=== PATIENT | male | born 1995 | race Caucasian/White ===

== ENCOUNTER → 2017-05-23 | Outpatient (CLI) | payer BC ==
[~2017-05-23] MED LIST: CALC625T13 PO; CHOL1000 PO; LRT5 PO; MISCCAP80; MULT-513 PO; ONDA4TAB10 SL; PRD10 PO; PRED20TA PO
--- NOTE | 2017-05-23 08:33 | DIAGNOSTIC IMAGING REPORT ---
ABDOMEN LIMITED (US) CLINICAL HISTORY: 22 years-old Male presenting with HEARTBURN. TECHNIQUE: Real-time grayscale and limited color Doppler ultrasound imaging of the abdomen limited to the right upper quadrant was performed. COMPARISON: None. FINDINGS: Pancreas: Visualized portions of the pancreatic head and body normal. Liver: Normal echogenicity and echotexture. No sonographic evidence of hepatic mass. Main portal vein patent with normal directional flow. Biliary: No intrahepatic biliary ductal dilatation. Common bile duct measures up to 4 mm in diameter. Gallbladder: No evidence of gallstones, gallbladder wall thickening, gallbladder distention, or pericholecystic fluid or inflammatory change. Few tiny punctate hyperechogenic foci associated with the gallbladder wall may represent tiny cholesterol polyps. Right kidney: Apparent lobular cystic lesion in the parapelvic region measuring 2.5 x 2.3 x 2.1 cm. No convincing evidence of soft tissue nodularity or thick septations. Peripheral hyperechogenic focus may represent mural calcification. Additional cysts noted in the left kidney. No hydronephrosis. Ascites: None. IMPRESSION: 1. No sonographic evidence of acute intra-abdominal pathology. No gallstones. 2. Bilateral renal cysts. Electronically signed by: Adan Le M.D. 05/23/2017 8:32 AM Dictated Date/Time: 05/23/2017 8:28 AM
== END | disposition home or self-care (01) ==
LOC: C.ULTR 07:40
PROVIDERS: ATTEND Family Medicine
DX: R10.11 Right upper quadrant pain (principal); R12 Heartburn

== ENCOUNTER 2017-06-16 16:52 | Emergency (ER) | payer BC ==
[~2017-06-16] VITALS: Ht 182.9 cm; Wt 87.0 kg
[~2017-06-16 16:52] MED LIST changes: -CALC625T13 PO; -CHOL1000 PO; -MISCCAP80; -MULT-513 PO; -ONDA4TAB10 SL; -PRD10 PO; -PRED20TA PO
[2017-06-16 17:12] VITALS: TEMP 37.5; Ht 182.9 cm; Wt 87.0 kg
[2017-06-16] MEDS ORDERED: ONDANSETRON INJ 2 MG/ML 2 ML VIAL IV STA (18:42)
[2017-06-16] MEDS ORDERED: SODIUM CHLORIDE 0.9% 1000ML 1,000 ML IV STA (18:42)
[2017-06-16] MEDS ORDERED: OPTIRAY 320 IV PRN (18:45)
[2017-06-16] MEDS ORDERED: CHOL1000 PO (19:11)
[2017-06-16] MEDS ORDERED: MISCCAP80 (19:11)
[2017-06-16] MEDS ORDERED: MULT-513 PO (19:11)
[2017-06-16] MEDS ORDERED: CALC625T13 PO (19:11)
[2017-06-16 19:30] LABS: BASO % 0.1 %; BASO ABS # 0.01 K/uL (0-0.2); COMPLETE YES; HEMATOCRIT 50.8 % (42-52); IG% 0.1 %; LYMPH % 10.6 %; LYMPH ABS # 0.82 K/uL (1.2-3.4); MEAN CORPUSCULAR HEMOGLOBIN 29.8 pg (25-34); MEAN CORPUSCULAR HGB CONC 34.3 g/dl (32-36); MEAN PLATELET VOLUME 11.6 fL (7.4-10.4); NEUT % 84.2 %; PLATELET COUNT 244 K/uL (130-400); RED BLOOD COUNT 5.84 M/uL (4.7-6.1); WHITE BLOOD COUNT 7.75 K/uL (4.8-10.8)
[2017-06-16 19:47] LABS: BUN/CREATININE RATIO 8.2 (10-20); CALCIUM 10.7 mg/dl (8.5-10.1); CREATININE 1.4 mg/dl (0.60-1.40); POTASSIUM 3.8 mmol/L (3.5-5.1)
[2017-06-16 21:22] LABS: URINE APPEARANCE CLOUDY (CLEAR); URINE COLOR DK YELLOW; URINE NITRITE NEG (NEG); URINE SPECIFIC GRAVITY 1.038 (1.000-1.030); UROBILINOGEN NEG (NEG)
[2017-06-16 21:33] LABS: MANUAL MICROSCOPIC REQUIRED? NO; REVIEW REQ? NO
[2017-06-16 21:34] LABS: URINE BILIRUBIN NEG (NEG)
--- NOTE | 2017-06-16 21:53 | DIAGNOSTIC IMAGING REPORT ---
CT SCAN OF THE ABDOMEN AND PELVIS WITH IV CONTRAST CLINICAL HISTORY: Generalized abdominal pain. Weight loss. COMPARISON STUDY: Abdominal ultrasound dated 05/23/2017. TECHNIQUE: Following the IV administration of 93 cc of Optiray 320, CT scan of the abdomen and pelvis is performed from the lung bases to the proximal femora. Images are reviewed in the axial, sagittal, and coronal planes. IV contrast was administered without complication. Automated dose control exposure was utilized. A dose lowering technique was utilized adhering to the principles of ALARA. CT DOSE: 333.73 mGy.cm FINDINGS: Lung bases: The heart is normal in size and without pericardial effusion. The lung bases are clear. Liver: The contrast-enhanced liver is normal in size, contour, and attenuation. There is no intrahepatic biliary ductal dilatation. The hepatic veins and portal veins are patent. Gallbladder: Unremarkable. Spleen: Normal in size and attenuation. Pancreas: Unremarkable. Adrenal glands: Unremarkable. Kidneys: The contrast enhanced kidneys are normal in size and without hydronephrosis. The kidneys enhance symmetrically. There are numerous (greater than 20) renal cysts and too small to characterize hypodensities which also likely represent cysts. Abdominal vasculature: The abdominal aorta is normal in course and caliber. Bowel: Ingested material is noted in the stomach. There is a long segment of wall thickening seen involving the distal small bowel involving the distal jejunum, ileum, and terminal ileum. There is also significant wall thickening identified in the cecum with mild surrounding inflammatory change. No bowel obstruction is seen. Liquid stool seen throughout the remainder of the colon. The distal colon is normal in appearance. There is no pneumatosis intestinalis or portal venous gas. The appendix is normal in appearance noting a calcified appendicolith. Peritoneum: There is trace perihepatic and perisplenic ascites. Trace free fluid is also seen in the pelvis. No intraperitoneal free air is seen. There is a small fat-containing umbilical hernia. Lymphadenopathy: Prominent mesenteric lymph nodes are quadrant measure up to 8 mm in short axis. Pelvic viscera: The bladder, prostate, and seminal vesicles are normal as visualized. Skeletal structures: No lytic or blastic lesions are seen. A bone island is incidentally noted in the right ischium. IMPRESSION: 1. There is a long segment of wall thickening involving the distal small bowel as well as the cecum. There is mild surrounding inflammatory change, and the appearance suggests a nonspecific enterocolitis. This is likely on an infectious or inflammatory basis in this age group. Specifically, Crohn's disease could have this appearance. That is clinical correlation will be required. Consider gastroenterology follow-up. 2. No bowel obstruction is seen. There is no pneumatosis intestinalis or portal venous gas. 3. Trace abdominopelvic ascites is likely on a reactive basis, as are prominent mesenteric lymph nodes. 4. The kidneys are infiltrated with numerous cysts and too small to characterize hypodensities (greater than 20). The appearance raises concern for autosomal dominant polycystic kidney disease. Correlation with clinical findings and family history will be required. 5. Additional findings as above. Electronically signed by: Clint Viveros M.D. 06/16/2017 9:52 PM Dictated Date/Time: 06/16/2017 9:43 PM
[2017-06-16] MEDS ORDERED: ONDA4TAB10 SL (22:11)
[2017-06-16] MEDS ORDERED: PRED20TA PO (22:11)
[2017-06-16] MEDS ORDERED: ONDANSETRON HOME PACK 4MG OD TAB PO ONE (22:15)
--- NOTE | 2017-06-16 22:19 | EMERGENCY ROOM VISIT NOTE ---
History Report prepared by Tamika: Marc Sim Under the Supervision of: Dr. Harley Fisher M.D. First contact with patient: 18:34 Chief Complaint: VOMITING Stated Complaint: VOMITING, STOMACH PAIN, DEHYDRATION History of Present Illness The patient is a 22 year old male who presents to the Emergency Room with complaints of worsening gastrointestinal issues that started 2 months ago. He says that he has had intermittent episodes since November, where he starts to feel a lot of pressure above his belly button as well as pain mostly on his right side. The patient states that he then starts to vomit and get really sick. He says that it takes around 7 to 8 hours for the episodes to resolve, and he usually feels better after he has episodes of diarrhea, which opens up everything for him. The patient states that his diarrhea has been loose and watery. He says that for the past 2 months, his episodes of abdominal pain started to progress into nausea and vomiting. He did not have nausea and vomiting with the abdominal pain until 2 months ago. The patient says that these episodes have been progressively worsening, and he has a colonoscopy scheduled for 3 days from now because he had blood in his stool a week ago. The patient says that earlier today he was really bloated and vomited all day. He adds that he has been feeling dehydrated today. The patient's mother notes that the patient has been seen by a doctor for his gastrointestinal issues, and had an ultrasound of his abdomen last month, which was normal. The patient had a prostate exam last week, which was normal. The patient's mother states that the patient is a sol who is outside a lot. The patient has been noted to have lost 27 pounds in the past 2 months, and has not eaten a meal for 4 days and has not had anything to drink for 24 hours. The patient says that he occasionally drinks out streams. He denies any urinary symptoms. He has no family history of Crohn's disease. The patient's grandfather did have esophageal cancer. Source of History: patient, parent (mother) Onset: 2 months ago Position: other (global - gastrointestinal issues) Symptom Intensity: episodes last 7 to 8 hours Timing: intermittent, other (episodes) Modifying Factors (Relieving): other (diarrhea) Associated Symptoms: + nausea, + vomiting, + abdominal pain, + hematochezia (one episode last week, denies currently), + diarrhea, No urinary symptoms Note: Associated symptoms: Feels dehydrated today. Review of Systems See HPI for pertinent positives & negatives. A total of 10 systems reviewed and were otherwise negative. Past Medical & Surgical Medical Problems: (1) Gastrointestinal problem Family History Cancer Social History Smoking Status: Never Smoker Marital Status: single Occupation Status: employed Current/Historical Medications Scheduled Calcium Polycarbophil (Fiber Tabs), 1 TAB PO DAILY Cholecalciferol (Vitamin D3), 1 TAB PO DAILY Multivitamins/Minerals (Mvi With Minerals), 1 TAB PO DAILY Ondasetron Odt (Zofran Odt), 4 MG SL Q6H Prednisone (Prednisone), 2 TAB PO DAILY Probiotic Product (Probiotic), 1 CAP DAILY Allergies Coded Allergies: No Known Allergies (Unverified , 07/11/06) Physical Exam Vital Signs Date Time Temp Pulse Resp B/P (MAP) Pulse Ox O2 Delivery O2 Flow Rate FiO2 06/16/17 21:00 92 18 132/76 96 Room Air 06/16/17 19:10 82 20 140/92 98 Room Air 06/16/17 17:12 37.5 104 17 125/75 97 Room Air Physical Exam Constitutional: Vital signs reviewed. Eyes: Pupils are equal round reactive to light. Conjunctiva are noninjected. ENT: Pharynx is clear without erythema or exudate. Mucous membranes are dry. Neck supple without meningeal signs. Respiratory: Clear to auscultation bilaterally. Breath sounds are equal bilaterally. Cardiovascular: Regular rate and rhythm. No rubs or gallops. GI: Soft, nondistended. Right upper quadrant and epigastric tenderness, no guarding. Bowel sounds are present. Musculoskeletal: No peripheral edema. No lower extremity tenderness. Integumentary: No cyanosis. Neurological: The patient is awake and alert. No focal deficits. Psychiatric: Normal affect. Medical Decision & Procedures ER Provider Diagnostic Interpretation: CT results as stated below per my review and radiologist interpretation. CT SCAN OF THE ABDOMEN AND PELVIS WITH IV CONTRAST CLINICAL HISTORY: Generalized abdominal pain. Weight loss. COMPARISON STUDY: Abdominal ultrasound dated 05/23/2017. TECHNIQUE: Following the IV administration of 93 cc of Optiray 320, CT scan of the abdomen and pelvis is performed from the lung bases to the proximal femora. Images are reviewed in the axial, sagittal, and coronal planes. IV contrast was administered without complication. Automated dose control exposure was utilized. A dose lowering technique was utilized adhering to the principles of ALARA. CT DOSE: 333.73 mGy.cm FINDINGS: Lung bases: The heart is normal in size and without pericardial effusion. The lung bases are clear. Liver: The contrast-enhanced liver is normal in size, contour, and attenuation. There is no intrahepatic biliary ductal dilatation. The hepatic veins and portal veins are patent. Gallbladder: Unremarkable. Spleen: Normal in size and attenuation. Pancreas: Unremarkable. Adrenal glands: Unremarkable. Kidneys: The contrast enhanced kidneys are normal in size and without hydronephrosis. The kidneys enhance symmetrically. There are numerous (greater than 20) renal cysts and too small to characterize hypodensities which also likely represent cysts. Abdominal vasculature: The abdominal aorta is normal in course and caliber. Bowel: Ingested material is noted in the stomach. There is a long segment of wall thickening seen involving the distal small bowel involving the distal jejunum, ileum, and terminal ileum. There is also significant wall thickening identified in the cecum with mild surrounding inflammatory change. No bowel obstruction is seen. Liquid stool seen throughout the remainder of the colon. The distal colon is normal in appearance. There is no pneumatosis intestinalis or portal venous gas. The appendix is normal in appearance noting a calcified appendicolith. Peritoneum: There is trace perihepatic and perisplenic ascites. Trace free fluid is also seen in the pelvis. No intraperitoneal free air is seen. There is a small fat-containing umbilical hernia. Lymphadenopathy: Prominent mesenteric lymph nodes are quadrant measure up to 8 mm in short axis. Pelvic viscera: The bladder, prostate, and seminal vesicles are normal as visualized. Skeletal structures: No lytic or blastic lesions are seen. A bone island is incidentally noted in the right ischium. IMPRESSION: 1. There is a long segment of wall thickening involving the distal small bowel as well as the cecum. There is mild surrounding inflammatory change, and the appearance suggests a nonspecific enterocolitis. This is likely on an infectious or inflammatory basis in this age group. Specifically, Crohn's disease could have this appearance. That is clinical correlation will be required. Consider gastroenterology follow-up. 2. No bowel obstruction is seen. There is no pneumatosis intestinalis or portal venous gas. 3. Trace abdominopelvic ascites is likely on a reactive basis, as are prominent mesenteric lymph nodes. 4. The kidneys are infiltrated with numerous cysts and too small to characterize hypodensities (greater than 20). The appearance raises concern for autosomal dominant polycystic kidney disease. Correlation with clinical findings and family history will be required. 5. Additional findings as above. Electronically signed by: Clint Viveros M.D. 06/16/2017 9:52 PM Dictated Date/Time: 06/16/2017 9:43 PM Laboratory Results 06/16/17 19:15 Red Blood Count 5.84, Mean Corpuscular Volume 87.0, Mean Corpuscular Hemoglobin 29.8, Mean Corpuscular Hemoglobin Concent 34.3, Mean Platelet Volume 11.6, Neutrophils (%) (Auto) 84.2, Lymphocytes (%) (Auto) 10.6, Monocytes (%) (Auto) 5.0, Eosinophils (%) (Auto) 0.0, Basophils (%) (Auto) 0.1, Neutrophils # (Auto) 6.52, Lymphocytes # (Auto) 0.82, Monocytes # (Auto) 0.39, Eosinophils # (Auto) 0.00, Basophils # (Auto) 0.01 06/16/17 19:15 Test 06/16/17 19:15 06/16/17 21:00 White Blood Count 7.75 K/uL (4.8-10.8) Red Blood Count 5.84 M/uL (4.7-6.1) Hemoglobin 17.4 g/dL (14.0-18.0) Hematocrit 50.8 % (42-52) Mean Corpuscular Volume 87.0 fL (80-100) Mean Corpuscular Hemoglobin 29.8 pg (25-34) Mean Corpuscular Hemoglobin Concent 34.3 g/dl (32-36) Platelet Count 244 K/uL (130-400) Mean Platelet Volume 11.6 fL (7.4-10.4) Neutrophils (%) (Auto) 84.2 % Lymphocytes (%) (Auto) 10.6 % Monocytes (%) (Auto) 5.0 % Eosinophils (%) (Auto) 0.0 % Basophils (%) (Auto) 0.1 % Neutrophils # (Auto) 6.52 K/uL (1.4-6.5) Lymphocytes # (Auto) 0.82 K/uL (1.2-3.4) Monocytes # (Auto) 0.39 K/uL (0.11-0.59) Eosinophils # (Auto) 0.00 K/uL (0-0.5) Basophils # (Auto) 0.01 K/uL (0-0.2) RDW Standard Deviation 41.3 fL (36.4-46.3) RDW Coefficient of Variation 13.0 % (11.5-14.5) Immature Granulocyte % (Auto) 0.1 % Immature Granulocyte # (Auto) 0.01 K/uL (0.00-0.02) Anion Gap 9.0 mmol/L (3-11) Est Creatinine Clear Calc Drug Dose 89.3 ml/min Estimated GFR () 80.9 Estimated GFR (Non- 69.8 BUN/Creatinine Ratio 8.2 (10-20) Calcium Level 10.7 mg/dl (8.5-10.1) Total Bilirubin 0.9 mg/dl (0.2-1) Direct Bilirubin 0.2 mg/dl (0-0.2) Aspartate Amino Transf (AST/SGOT) 14 U/L (15-37) Alanine Aminotransferase (ALT/SGPT) 23 U/L (12-78) Alkaline Phosphatase 52 U/L (45-117) Total Protein 8.4 gm/dl (6.4-8.2) Albumin 4.5 gm/dl (3.4-5.0) Lipase 109 U/L (73-393) Urine Color DK YELLOW Urine Appearance CLOUDY (CLEAR) Urine pH 6.0 (4.5-7.5) Urine Specific [place] 1.038 (1.000-1.030) Urine Protein 1+ (NEG) Urine Glucose (UA) NEG (NEG) Urine Ketones 3+ (NEG) Urine Occult Blood TRACE (NEG) Urine Nitrite NEG (NEG) Urine Bilirubin NEG (NEG) Urine Urobilinogen NEG (NEG) Urine Leukocyte Esterase TRACE (NEG) Urine WBC (Auto) 1-5 /hpf (0-5) Urine RBC (Auto) 5-10 /hpf (0-4) Urine Hyaline Casts (Auto) 10-30 /lpf (0-5) Urine Epithelial Cells (Auto) 10-20 /lpf (0-5) Urine Bacteria (Auto) NEG (NEG) Laboratory results as reviewed by me. Medications Administered Medications (Trade) Dose Ordered Sig/Jay Jay Route Start Time Stop Time Status Last Admin Dose Admin Ondansetron HCl (Zofran Inj) 4 mg NOW STAT IV 06/16/17 18:42 06/16/17 18:44 DC 06/16/17 19:29 4 MG Sodium Chloride 1,000 ml @ 999 mls/hr Q1H1M STAT IV 06/16/17 18:42 06/16/17 19:42 DC 06/16/17 19:29 999 MLS/HR ED Course 1834: The patient was evaluated in room C7. A complete history and physical exam was performed. 1841: Ordered NSS 1000 ml @ 999 mls/hr IV, Zofran Inj 4 mg IV. 2000: I reevaluated the patient and he is feeling better, drinking contrast. I discussed the test results with him. 2201: I discussed the patient with Dr. Alondra Hensley GI - he says to put the patient on Prednisone 40 mg for 2 weeks, and he will do the scope on Saturday. 2204: I reevaluated the patient and discussed the plan with him and his mother. He feels comfortable going home. The patient verbally expressed understanding and agreement of the treatment plan. The patient will be discharged. 2210: Ordered Prednisone Tab 40 mg PO. 2214: Ordered Zofran ODT 4MG Home Pack 1 homepack PO. Medical Decision This is a 22-year-old male presents with abdominal pain, weight loss, vomiting and diarrhea. Differential diagnosis includes inflammatory bowel disease, irritable bowel syndrome, gastroenteritis, amebiosis, Giardia, abdominal mass. I did perform a limited focused review of portions of the patient's old chart on the electronic medical record. The patient had an ultrasound of his abdomen on May 23 which showed no acute intraabdominal pathology. I did evaluate the patient as noted above. IV access was established. I did treat the patient with Zofran and normal saline IV. I did order and personally review the patient's urinalysis as described above. I did order and review the patient's blood work as noted in the electronic medical record. His white blood cell count is not elevated. I did order a stool culture as well as testing for ova and parasite and C. difficile. I did order a CT of the abdomen and pelvis. I did review the images myself as well as the radiology report as described above. Patient has signs concerning for Crohn's disease. There is thickening of the distal small bowel and proximal cecum. No signs of bowel obstruction. He does have some reactive lymphadenopathy and ascites. He also has multiple cysts on his kidneys. I did discuss the test results in detail with the patient and his mother. He does have an appointment to see Dr. Cantu for colonoscopy in 3 days. I did call Dr. Cantu and discussed the CT findings with him as well as the patient's symptoms. He recommended placing the patient on prednisone for 2 weeks at 40 mg daily. He also advised staying on a soft diet. The patient was happy with this plan. He will follow up on Saturday for his colonoscopy. He will return should he have any worsening symptoms or develop any new concerning symptoms. He was given prednisone 40 mg here. He was discharged with a prescription for Zofran and prednisone. Medication Reconcilliation Current Medication List: was personally reviewed by me Blood Pressure Screening Patient's blood pressure: Normal blood pressure Consults Time Called: 2199 Consulting Physician: Dr. Alondra Hensley GI Returned Call: 2201 I discussed the patient with Dr. Alondra Hensley GI - he says to put the patient on Prednisone 40 mg for 2 weeks, and he will do the scope on Saturday. Impression Primary Impression: Enterocolitis Additional Impression: Kidney cysts Scribe Attestation The scribe's documentation has been prepared under my direct and personally reviewed by me in its entirety. I confirm that the note above accurately reflects all work, treatment, procedures, and medical decision making performed by me. Departure Information Dispostion Home / Self-Care Prescriptions Prednisone (Prednisone) 20 Mg Tab 2 TAB PO DAILY for 13 Days, #26 TAB FOR 4 DAYS Prov: Harley Fisher M.D. 06/16/17 Ondasetron Odt (ZOFRAN ODT) 4 Mg Tab 4 MG SL Q6H for Nausea, #6 TAB Prov: Harley Fisher M.D. 06/16/17 Referrals Marty Gonzalez D.O. (PCP) Forms HOME CARE DOCUMENTATION FORM, IMPORTANT VISIT INFORMATION Patient Instructions My [facility] Additional Instructions You have been examined and treated today on an emergency basis only. This is not a substitute for, or an effort to provide, complete comprehensive medical care. It is impossible to recognize and treat all injuries or illnesses in a single emergency department visit. It is therefore important that you follow up closely with your physician. Call as soon as possible for an appointment. Return for worsening symptoms or if you develop fever, rectal bleeding, inability keep down liquids or any other concerning symptoms. Problem Qualifiers
[2017-06-16 22:27] VITALS: BP 123/83; PULSE 93; O2SAT 96
[2017-06-20 14:32] LABS: O&P SOURCE OTHER-STOOL
== END 2017-06-16 22:20 | disposition home or self-care (01) ==
LOC: C.EDB 16:53 → C.EDC 22:20
DX: K52.9 Noninfective gastroenteritis and colitis, unspecified (principal); N28.1 Cyst of kidney, acquired

== ENCOUNTER → 2017-06-24 | Outpatient (CLI) | payer BC ==
[~2017-06-24] MED LIST changes: +CALC625T13 PO; +CHOL1000 PO; -LRT5 PO; +MISCCAP80; +MULT-513 PO; +ONDA4TAB10 SL; +OPTIRAY 320 IV PRN; +PRD10 PO; +PRED20TA PO
--- NOTE | 2017-06-24 15:48 | DIAGNOSTIC IMAGING REPORT ---
CT ABD/PELVIS IV AND ORAL CONT (enterography study) CLINICAL HISTORY: Crohn's disease. Small bowel inflammation. COMPARISON STUDY: June 16, 2017 TECHNIQUE: Following the IV administration of 92 mL of Optiray-320, CT scan of the abdomen and pelvis was performed from the lung bases to the proximal femurs. Images are reviewed in the axial, sagittal, and coronal planes. IV contrast was administered without complication. A dose lowering technique was utilized adhering to the principles of ALARA. CT DOSE: 342.90 mGy.cm FINDINGS: Lower chest: The heart is normal in size and configuration, without pericardial effusion. The lung bases and pleural spaces are clear. Liver: There is scattered subcentimeter hypodensities likely are presenting cysts Gallbladder: Unremarkable. Spleen: Normal in size and attenuation. Pancreas: Unremarkable. Adrenal glands: Unremarkable. Kidneys: There are bilateral hypodense renal lesions ranging in size from 3 mm to 25 mm. These lesions likely represent cysts Bowel: There are no transition zones indicate bowel obstruction. There is no evidence of acute diverticulitis. The appendix appears normal. There is minimal interloop fluid within the right lower quadrant. There is a persistent focus of mild luminal narrowing and bowel wall hyperenhancement involving the ascending colon. On a statistical basis this is inflammatory. There is marked improvement in the previously identified distal ileal wall thickening with only minimal residua. Peritoneum: There is no intraperitoneal free air or abdominal ascites. Vasculature: The abdominal aorta is normal in course and caliber. Adenopathy: None. Pelvic viscera: The bladder, and pelvic viscera are unremarkable. Skeletal structures: No destructive osseous lesions are seen. IMPRESSION: 1. No evidence of bowel obstruction. No evidence of free air 2. Hepatic and renal cysts, similar to the preceding study 3. Marked improvement in the previous identified small bowel wall thickening 4. Minimal right lower quadrant interloop fluid 5. Area of bowel wall thickening and hyperenhancement involving the ascending colon. This is statistically on an inflammatory/infectious basis. Follow-up to document resolution is recommended 6. Normal appendix Electronically signed by: Juan Luz M.D. 06/24/2017 3:47 PM Dictated Date/Time: 06/24/2017 3:39 PM
== END | disposition home or self-care (01) ==
LOC: C.CTS 14:15
PROVIDERS: ATTEND Internal Medicine Gastroenterology
DX: K50.90 Crohn's disease, unspecified, without complications (principal)

== ENCOUNTER 2017-07-08 08:41 | Inpatient (IN) | payer BC ==
[~2017-07-08] VITALS: Ht 182.9 cm; Wt 83.5 kg
[~2017-07-08 08:41] MED LIST changes: -OPTIRAY 320 IV PRN; -PRD10 PO; -PRED20TA PO
[2017-07-08] MEDS ORDERED: ONDANSETRON INJ 2 MG/ML 2 ML VIAL IV STA (09:15)
[2017-07-08] MEDS ORDERED: SODIUM CHLORIDE 0.9% 1000ML 1,000 ML IV STA (09:15)
[2017-07-08] MEDS ORDERED: SODIUM CHLORIDE 0.9% 500ML 500 ML IV STA (09:15)
[2017-07-08] MEDS ORDERED: MoRPHine SULFATE 4 MG/ML 1 ML CARP\\VIAL IV STA (09:15)
[2017-07-08] MEDS ORDERED: PRD10 PO (09:24)
--- NOTE | 2017-07-08 09:51 | EMERGENCY ROOM VISIT NOTE ---
History Report prepared by Tamika: Ara Amador Under the Supervision of: Dr. Nani Kebede M.D. First contact with patient: 08:54 Chief Complaint: ABDOMINAL PAIN Stated Complaint: SEVERE ABD. PAIN, V, DEHYDRATION Nursing Triage Summary: Patient reports ongoing issues with abd pain nausea and vomiting. States he see's Dr. Cantu for intestinal issues. Today c/o mid abd pain with nausea and vomiting. History of Present Illness The patient is a 22 year old male who presents to the Emergency Room with complaints of worsening abdominal pain since yesterday morning. He is also experiencing nausea and vomiting. He had a normal bowel movement yesterday afternoon, but now he feels constipated. He rates his pain as an 8/10 in severity. The patient sees Dr. Cantu and has been tested for Crohn's Disease. He states that the results have shown inflammation of the small intestine, but no conclusive diagnosis of Crohn's. He states that he has occasional "flare-ups " that feel very similar to his symptoms today. He was just in the ED 3 weeks ago with similar symptoms. The patient has had a colonoscopy and endoscopy in the past. He denies melena and hematochezia. He is currently taking 30mg of prednisone but vomited last night shortly after taking it. Source of History: patient Onset: yesterday morning Position: abdomen Symptom Intensity: 8/10 Timing: worsening Associated Symptoms: + nausea, + vomiting, No melena, No hematochezia Review of Systems See HPI for pertinent positives & negatives. A total of 10 systems reviewed and were otherwise negative. Past Medical & Surgical Medical Problems: (1) abd pain with hx of possibel crohn disease (2) Gastrointestinal problem (3) H/O wisdom tooth extraction (4) Kidney cysts Family History Cancer Diabetes mellitus Hypertension Kidney disease Kidney stones Seizures Social History Smoking Status: Never Smoker Smokeless Tobacco Use: No Marital Status: single Housing Status: lives with family Occupation Status: employed Current/Historical Medications Scheduled Cholecalciferol (Vitamin D3), 1 TAB PO DAILY Multivitamins/Minerals (Mvi With Minerals), 1 TAB PO DAILY Prednisone (Prednisone), 30 MG PO DAILY Probiotic Product (Probiotic), 1 CAP DAILY Allergies Coded Allergies: No Known Allergies (Unverified , 07/08/17) Physical Exam Vital Signs Date Time Temp Pulse Resp B/P (MAP) Pulse Ox O2 Delivery O2 Flow Rate FiO2 07/08/17 12:18 36.6 94 18 134/83 96 Room Air 07/08/17 12:12 111 18 134/83 95 Room Air 07/08/17 10:35 112 20 121/88 99 Room Air 07/08/17 08:44 36.6 137 18 104/77 97 Room Air Physical Exam Vital signs reviewed. General: Well-appearing 22 year old male, in no significant distress. HEENT: No scleral icterus, PERRLA, neck supple. Atraumatic. Cardiovascular: Regular rate and rhythm, no extra sounds. Pulmonary: Clear to auscultation bilaterally, normal work of breathing. Abdomen: Soft, slight abdominal distention and tenderness, decreased bowel sounds. Musculoskeletal: Atraumatic, no peripheral edema. Neurologic: Patient awake alert and oriented x 3 Skin: Warm, dry, no rash Medical Decision & Procedures ER Provider Diagnostic Interpretation: Radiology results as stated below per my review and radiologist interpretation: ABDOMEN 2VIEW W/PA CHEST RTN CLINICAL HISTORY: Severe abdominal pain. Nausea and vomiting. Small bowel obstruction. COMPARISON STUDY: CT scan dated 06/24/2017 FINDINGS: The erect chest reveals no free air. There is no focal pulmonary consolidation. Erect and supine views the abdomen reveal multiple colonic air-fluid levels. The abdomen is otherwise relatively gasless. No transition zones are visualized. No abnormal calcifications are delineated. IMPRESSION: 1. There are no transition zones to indicate a high-grade bowel obstruction 2. Nonspecific bowel gas pattern with multiple colonic air-fluid levels 3. No evidence of free air Electronically signed by: Juan Luz M.D. 07/08/2017 9:57 AM Dictated Date/Time: 07/08/2017 9:56 AM Laboratory Results Test 07/08/17 09:25 07/08/17 09:30 RDW Standard Deviation 43.5 fL (36.4-46.3) RDW Coefficient of Variation 13.9 % (11.5-14.5) White Blood Count 18.80 K/uL (4.8-10.8) Red Blood Count 6.27 M/uL (4.7-6.1) Hemoglobin 19.1 g/dL (14.0-18.0) Hematocrit 54.0 % (42-52) Mean Corpuscular Volume 86.1 fL (80-100) Mean Corpuscular Hemoglobin 30.5 pg (25-34) Mean Corpuscular Hemoglobin Concent 35.4 g/dl (32-36) Platelet Count 263 K/uL (130-400) Mean Platelet Volume 12.1 fL (7.4-10.4) Neutrophils (%) (Auto) 80.4 % Lymphocytes (%) (Auto) 6.3 % Monocytes (%) (Auto) 12.8 % Eosinophils (%) (Auto) 0.0 % Basophils (%) (Auto) 0.1 % Neutrophils # (Auto) 15.11 K/uL (1.4-6.5) Lymphocytes # (Auto) 1.18 K/uL (1.2-3.4) Monocytes # (Auto) 2.41 K/uL (0.11-0.59) Eosinophils # (Auto) 0.00 K/uL (0-0.5) Basophils # (Auto) 0.02 K/uL (0-0.2) Immature Granulocyte % (Auto) 0.4 % Immature Granulocyte # (Auto) 0.08 K/uL (0.00-0.02) Total Bilirubin 1.8 mg/dl (0.2-1) Direct Bilirubin 0.3 mg/dl (0-0.2) Aspartate Amino Transf (AST/SGOT) 13 U/L (15-37) Alanine Aminotransferase (ALT/SGPT) 32 U/L (12-78) Alkaline Phosphatase 61 U/L (45-117) Total Protein 8.8 gm/dl (6.4-8.2) Albumin 4.6 gm/dl (3.4-5.0) Lipase 82 U/L (73-393) Urine Crystals CALCIUM OXALATE (NONE Urine Pathogenic Casts /lpf (0) Urine Mucus PRESENT (NONE PRSENT) Laboratory results per my review. Medications Administered Medications (Trade) Dose Ordered Sig/Jay Jay Route Start Time Stop Time Status Last Admin Dose Admin Sodium Chloride 500 ml @ 999 mls/hr Q31M STAT IV 07/08/17 09:15 07/08/17 09:45 DC 07/08/17 09:15 999 MLS/HR Sodium Chloride 1,000 ml @ 200 mls/hr Q5H STAT IV 07/08/17 09:15 07/08/17 14:04 DC 07/08/17 09:31 200 MLS/HR Morphine Sulfate (MoRPHine SULFATE INJ) 4 mg NOW STAT IV 07/08/17 09:15 07/08/17 09:17 DC 07/08/17 09:32 4 MG Ondansetron HCl (Zofran Inj) 4 mg NOW STAT IV 07/08/17 09:15 07/08/17 09:17 DC 07/08/17 09:31 4 MG ED Course 0854: Past medical records reviewed. The patient was evaluated in room B7. A complete history and physical examination was performed. 0915: Zofran 4 mg IV, Morphine sulfate 4 mg IV, NSS 1000 ml @ 200 mls/hr IV, NSS 500 ml @ 999 mls/hr IV 1135: I reassessed the patient at this time. He is feeling better and resting comfortably. I discussed the results and treatment plan with the patient and his father. I answered all pertaining questions that they had. They expressed understanding and verbalized agreement. 1158: I reviewed the patient's case with Dr. Cisneros. [facility] will evaluate the patient for further management. Medical Decision Differential diagnosis: Etiologies such as appendicitis, diverticulitis, PUD, biliary pathology, UTI, pancreatitis, obstruction, mesenteric ischemia, aortic pathology, infections, inflammatory bowel disease, renal colic, as well as others were entertained. This patient was evaluated and appeared to be in no significant distress. IV access was obtained and laboratory work was drawn. The patient was given IV Zofran and morphine for his discomfort. He had no further vomiting in the emergency department. The patient was hydrated with normal saline solution. Abdominal x-ray series reveals multiple air-fluid levels however no significant evidence of bowel obstruction. There is no free air. Patient has a leukocytosis however he is also on oral prednisone. He does have a renal insufficiency with a creatinine of 1.9. This is likely secondary to dehydration. Given the patient's symptoms and concern for underlying bowel obstruction. Patient will be evaluated by the hospitalist service for further management. Patient and dad are aware of the plan and agree. Medication Reconcilliation Current Medication List: was personally reviewed by me Blood Pressure Screening Patient's blood pressure: Normal blood pressure Consults Time Called: 1150 Consulting Physician: Dr. Cisneros Returned Call: 1158 I reviewed the patient's case with Dr. Cisneros. [facility] will evaluate the patient for further management. Impression Primary Impression: Abdominal pain Additional Impressions: Vomiting Acute renal insufficiency Scribe Attestation The scribe's documentation has been prepared under my direction and personally reviewed by me in its entirety. I confirm that the note above accurately reflects all work, treatment, procedures, and medical decision making performed by me. Departure Information Dispostion Being Evaluated By Hospitalist Referrals Miguel Cantu M.D. (PCP) Patient Instructions My [facility] Problem Qualifiers Primary Impression: Abdominal pain Abdominal location: generalized Qualified Codes: R10.84 - Generalized abdominal pain Additional Impressions: Vomiting Vomiting type: unspecified Vomiting Intractability: non-intractable Nausea presence: with nausea Qualified Codes: R11.2 - Nausea with vomiting, unspecified
[2017-07-08 09:54] LABS: BASO % 0.1 %; BASO ABS # 0.02 K/uL (0-0.2); COMPLETE YES; IG% 0.4 %; LYMPH % 6.3 %; LYMPH ABS # 1.18 K/uL (1.2-3.4); MEAN CELL VOLUME 86.1 fL (80-100); MEAN CORPUSCULAR HEMOGLOBIN 30.5 pg (25-34); MEAN CORPUSCULAR HGB CONC 35.4 g/dl (32-36); MEAN PLATELET VOLUME 12.1 fL (7.4-10.4); MONO % 12.8 %; NEUT % 80.4 %; PLATELET COUNT 263 K/uL (130-400); RED BLOOD COUNT 6.27 M/uL (4.7-6.1)
--- NOTE | 2017-07-08 09:59 | DIAGNOSTIC IMAGING REPORT ---
ABDOMEN 2VIEW W/PA CHEST RTN CLINICAL HISTORY: Severe abdominal pain. Nausea and vomiting. Small bowel obstruction. COMPARISON STUDY: CT scan dated 06/24/2017 FINDINGS: The erect chest reveals no free air. There is no focal pulmonary consolidation. Erect and supine views the abdomen reveal multiple colonic air-fluid levels. The abdomen is otherwise relatively gasless. No transition zones are visualized. No abnormal calcifications are delineated. IMPRESSION: 1. There are no transition zones to indicate a high-grade bowel obstruction 2. Nonspecific bowel gas pattern with multiple colonic air-fluid levels 3. No evidence of free air Electronically signed by: Juan Luz M.D. 07/08/2017 9:57 AM Dictated Date/Time: 07/08/2017 9:56 AM
[2017-07-08 10:07] LABS: URINE APPEARANCE CLOUDY (CLEAR); URINE NITRITE POS (NEG); URINE PH 5.5 (4.5-7.5); URINE SPECIFIC GRAVITY 1.037 (1.000-1.030); UROBILINOGEN NEG (NEG)
[2017-07-08 10:14] LABS: CREATININE 1.9 mg/dl (0.60-1.40); POTASSIUM 3.8 mmol/L (3.5-5.1)
[2017-07-08 10:16] LABS: MANUAL MICROSCOPIC REQUIRED? NO; REVIEW REQ? YES; URINE BILIRUBIN NEG (NEG); URINE COLOR AMBER
[2017-07-08 10:23] LABS: URINE MUCUS PRESENT (NONE PRSENT)
[2017-07-08 10:24] LABS: ZZUR CULT IF INDIC CLEAN CATCH YES
[2017-07-08 12:18] VITALS: BP 134/83; PULSE 94; TEMP 36.6; O2SAT 96; Ht 182.9 cm; Wt 83.5 kg
[2017-07-08] MEDS ORDERED: MAGNESIUM HYDROXIDE SUSP 30 ML UDC PO PRN (13:00)
[2017-07-08] MEDS ORDERED: POLYETHYLENE (MIRALAX) 17 GM PACK PO PRN (13:00)
[2017-07-08] MEDS ORDERED: ALUMINUM/MAGNESIUM/SIMETH (MAALOX MAX) 30 ML UDC PO PRN (13:00)
[2017-07-08] MEDS ORDERED: ONDANSETRON INJ 2 MG/ML 2 ML VIAL IV PRN (13:00)
[2017-07-08] MEDS ORDERED: ERTAPENEM 1 GM ADDVIAL IV ONE (13:00)
--- NOTE | 2017-07-08 13:19 | History and Physical ---
History & Physical Date of Service Jul 08, 2017. History & Physical abd pain with hx of possibel crohn disease, [id number]
[2017-07-08 13:30] VITALS: BP 129/91; PULSE 105; TEMP 36.9; O2SAT 96
[2017-07-08] MEDS ORDERED: ERTAPENEM IV 1,000 MG in SODIUM CHLORIDE 0.9% 50ML 50 ML IV SCH (14:00)
[2017-07-08] MEDS: METHYLPREDNISOLONE IV 20 MG in SYRINGE 0 ML IV SCH ×2 (14:36→21:08)
[2017-07-08] MEDS: NSS + 20MEQ KCL 1000ML 1,000 ML IV SCH ×2 (14:36→22:03)
[2017-07-08] MEDS: ACETAMINOPHEN 325 MG TAB PO PRN (14:41)
[2017-07-08 15:30] VITALS: O2SAT 96
--- NOTE | 2017-07-08 15:37 | HISTORY & PHYSICAL EXAMINATION ---
DATE OF ADMISSION: 07/08/2017 This is a level 3 inpatient admission, 40 minutes. CHIEF COMPLAINT: Abdominal pain, nausea and vomiting. HISTORY OF PRESENT ILLNESS: The patient is a 22-year-old white male with recently found possible Crohn disease, coming into the hospital Emergency Room with the above chief complaint. This medical information was per patient report and information in the computer. The patient was seen in this hospital Emergency Room on 06/16/2017 because of vomiting, abdominal pain and dehydration. He reported has this problem for recent 2 months. Conditions have been getting worse. In the previous Emergency Room visit, he was advised by the ED physician after they talked to the GI specialist. He had abdominal CT studies, found wall thickening in the distal small bowel. There was no obstruction. There was kidney infiltration with numerous cysts. The patient was released to home from the Emergency Room in previous visit, was on prednisone. The patient has been seen by GI specialist, had a colonoscopy done and was seen by GI physicians, had recommendation about tapering dose of oral prednisone, he currently is on 30 mg p.o. daily. The patient reported abdominal cramping, pain, nausea, vomiting have been getting worse in recent 2-3 days; and was having 10 times vomiting yesterday, today had several times in the morning. However, no any vomiting after arriving to the Emergency Room. He was found to have tachycardia, heart rate up to 137. He got IV fluid in the Emergency Room. When I saw him, he was awake, alert and orientated, confirming the above informations. Reported was having several times maroon stools. Currently, mild nauseation, no vomiting. No fever and chills. Having cramping abdominal pain comes and goes. He got 1 dose of morphine, 1 dose of Zofran and got IV fluid at 500 mL bolus. PAST MEDICAL HISTORY: Like I mentioned in the above. PAST SURGICAL HISTORY: Includes wisdom tooth removal. SOCIAL HISTORY: Denied tobacco abuse disorder or alcohol abuse disorder. Denied illicit drug abuse. FAMILY HISTORY: Has no Crohn disease. SOCIAL HISTORY: Otherwise not remarkable. CURRENT MEDICATIONS: Vitamin D 1000 units 1 tab p.o. daily, prednisone 30 mg p.o. daily. REVIEW OF SYSTEMS: Please see HPI, otherwise 14 points organ system review were negative. LABORATORY STUDIES: WBC 18, hemoglobin 19, platelet 263. Sodium, 136, BUN 27, creatinine 1.9. Random blood glucose 146. Total bilirubin 1.8. AST 13, ALT 32. Toprol protein 8.8. UA shows 1+ occult blood, nitrite positive, bacteria was 2+. Emergency Room did abdominal and chest x-ray studies; there was no indication of high grade bowel obstructions. There were multiple chronic air fluid levels. ASSESSMENT AND PLAN: A 22-year-old white male with the problems below: 1. Recurrent abdominal pain associated with nausea, vomiting, possible Crohn disease with recent colonoscopy done. 2. Leukocytosis, likely from oral prednisone. However, I would like to rule out possible sepsis because there was possible urinary tract infection in the urinary studies and there was leukocytosis and tachycardia. 3. Possible acute on chronic kidney failure. Creatinine 1.9 from 1.4 on 06/16/2017 and with evidence of possible polycystic kidney disease. PLAN: We will admit to the med/surg. IV fluid, supportive care, Zofran and morphine p.r.n. for the pain. Discussed with corporate communications intern GI specialist today, will have GI consultation. We will start Solu-Medrol 20 mg p.o. b.i.d., first dose now. We will have abdominal CT with oral contrast only. We will not do CT angio for now because patient has acute on chronic kidney failure. The patient did tell me he has an appointment with urologist for possible PKD. I feel this condition needs to have nephrology involved sooner. Therefore, we will have nephrology consultation, we will watch renal functions. Because of possible sepsis and UTI, I send a blood culture and start Invanz for now and I will go from there. GI prophylaxis will be Protonix. DVT prophylaxis will be SCD. The patient is very low risk of DVT. MTDD
[2017-07-08 15:49] VITALS: BP 135/83; PULSE 79; TEMP 36.9; O2SAT 96
--- NOTE | 2017-07-08 16:23 | DIAGNOSTIC IMAGING REPORT ---
ADDENDUM The focal area of thickening within the mid ascending colon likely represents a colitis possibly due to the patient's history of Crohn's disease. However, colonoscopy should be performed to exclude the less likely possibility of an underlying colonic mass given the associated obstruction. Electronically signed by: Mohsen Pate M.D. 07/08/2017 4:37 PM Dictated Date/Time: 07/08/2017 4:37 PM ORIGINAL REPORT ABDOMEN AND PELVIS CT WITH ORAL CONTRAST CT DOSE: 437.69 mGy.cm HISTORY: Generalized abdominal pain with hx of possible crohns disease TECHNIQUE: Multiaxial CT images of the abdomen and pelvis were performed following the use of oral contrast. A dose lowering technique was utilized adhering to the principles of ALARA. COMPARISON STUDY: Abdomen and pelvis CT 06/24/2017. FINDINGS: The lung bases are clear. No pneumoperitoneum. No pneumatosis. The unenhanced liver, spleen, adrenal glands, pancreas, and gallbladder are unremarkable. No renal stones or hydronephrosis. A few bilateral renal hypodense lesions are again noted. These are incompletely characterized on this noncontrast study. No retroperitoneal lymphadenopathy. Bladder is unremarkable. Small amount of ascites. Focal thickening at the mid descending colon with mild surrounding pericolonic inflammatory change. This is similar to the prior study. However, this now results in a focal transition point/narrowing with a distended and fluid-filled cecum. There are also multiple distended fluid-filled loops of small bowel seen throughout the abdomen. Findings are consistent with a large bowel obstruction. Mild edema surrounding the small bowel loops. The appendix is also fluid-filled and mildly distended. This measures up to 8 mm. There is minimal inflammatory change adjacent to the appendix. The cecum is distended up to 9 cm. The small bowel is distended up to 4.5 cm. The small bowel is fluid-filled. Punctate calcifications within the upper pole the left kidney which may be cortical. IMPRESSION: 1. Focal area of thickening and inflammatory change within the mid ascending colon which is similar to the prior study. However, this now results in the transition point of the large bowel obstruction. The cecum and small bowel are fluid-filled and distended as described above. 2. The appendix is also mildly distended and fluid-filled. This may be secondary to the large bowel obstruction. 3. Small amount of ascites. No pneumoperitoneum or pneumatosis identified. Electronically signed by: Mohsen Pate M.D. 07/08/2017 4:22 PM Dictated Date/Time: 07/08/2017 4:12 PM
--- NOTE | 2017-07-08 17:33 | Nephrology Consultation ---
Nephrology Consultation Date & Providers Date of Consultation: Jul 08, 2017. Primary Care Provider: Marty Gonzalez D.O. Referring Provider: Reason for Consultation Evaluation of kidney cysts History of Present Illness Mr. Armenta is a 22 year old white male who is seen at the request of Dr. Cisneros for evaluation of kidney cysts. The patient and his mother provided the majority of the medical history. Patient's EMR was also reviewed and is summarized as follows: Mr. Armenta has enjoyed good health. He has had no chronic medical illnesses. His only medication has been a probiotic and OTC vitamin D. Over the last two weeks he has developed recurrent abdominal discomfort. Contrast + abdominal CT revealed changes c/w inflammatory colitis. Patient was seen by GI, underwent colonoscopy and was started on Prednisone therapy. CT scan also incidentally found cysts within the kidneys and liver. The patient has developed YAO. Creatinine has risen from 0.7 to 1.9. Patient has hypercalcemia. Urine microscopy shows CaOx crystals. Patient denies a h/o recurrent BRYSON, angina, heart murmur, gross hematuria or diverticulosis. Past Medical/Surgical History Medical: No chronic medical illnesses Surgical: No previous surgeries Allergies Coded Allergies: No Known Allergies (Unverified , 07/08/17) Inpatient Medications Current Inpatient Medications Medications (Trade) Dose Ordered Sig/Jay Jay Route Start Time Stop Time Status Last Admin Dose Admin Acetaminophen (Tylenol Tab) 650 mg Q4H PRN PO 07/08/17 13:00 08/07/17 12:59 07/08/17 14:41 650 MG Polyethylene (Miralax Powder Packet) 17 gm DAILY PRN PO 07/08/17 13:00 08/07/17 12:59 Zolpidem Tartrate (Ambien Tab) 5 mg HSZ PRN PO 07/08/17 13:00 08/07/17 12:59 Ondansetron HCl (Zofran Inj) 4 mg Q6H PRN IV 07/08/17 13:00 08/07/17 12:59 Potassium Chloride/Sodium Chloride 1,000 ml @ 125 mls/hr Q8H IV 07/08/17 13:55 08/07/17 13:54 07/08/17 14:36 125 MLS/HR Ertapenem 1000 mg/ Sodium Chloride 60 ml @ 120 mls/hr Q24H IV 07/08/17 14:00 9/21/17 13:59 07/08/17 14:36 120 MLS/HR Lactobacillus Acidophilus (Floranex Tab) 1 tab DAILY PO 07/09/17 09:00 08/08/17 08:59 Methylprednisolone Sodium Succinate 20 mg/Syringe 0.32 ml @ 1.5 mls/min BID IV 07/08/17 14:00 08/07/17 13:59 07/08/17 14:36 1.5 MLS/MIN Family History Cancer Diabetes mellitus Hypertension Kidney disease Kidney stones Seizures Negative for ADPKD / CKD / ESRD. Also negative for Crohn's disease Social History Smoking Status: Never Smoker Smokeless Tobacco Use: No Drug Use: none Marital Status: single Occupation: employed Review of Systems Constitutional: No fever Respiratory: No cough Cardiovascular: No chest pain Abdomen: + nausea, + constipation, No pain Genitourinary - Male: No hematuria A complete review of systems was performed. Pertinent positives are noted above. All other systems are negative. Physical Exam Date Time Temp Pulse Resp B/P (MAP) Pulse Ox O2 Delivery O2 Flow Rate FiO2 07/08/17 15:49 36.9 79 18 135/83 (100) 96 Room Air 07/08/17 13:30 36.9 105 20 129/91 (104) 96 Room Air 07/08/17 13:24 105 16 126/76 97 Room Air 07/08/17 12:18 36.6 94 18 134/83 96 Room Air 07/08/17 12:12 111 18 134/83 95 Room Air 07/08/17 10:35 112 20 121/88 99 Room Air 07/08/17 08:44 36.6 137 18 104/77 97 Room Air General Appearance: no apparent distress Head: normocephalic, atraumatic Eyes: PERRL, EOMI Neck: no adenopathy, no JVD Respiratory/Chest: lungs clear, no respiratory distress Cardiovascular: regular rate, rhythm, no murmur Abdomen/GI: soft (no bowel sounds) Extremities/Musculoskelatal: no calf tenderness, no pedal edema Neurologic/Psych: alert, oriented x 3 Skin: warm/dry Laboratory Results Last 24 Hours Test 07/08/17 09:25 07/08/17 09:30 07/08/17 16:26 White Blood Count 18.80 K/uL Red Blood Count 6.27 M/uL Hemoglobin 19.1 g/dL Hematocrit 54.0 % Mean Corpuscular Volume 86.1 fL Mean Corpuscular Hemoglobin 30.5 pg Mean Corpuscular Hemoglobin Concent 35.4 g/dl Platelet Count 263 K/uL Mean Platelet Volume 12.1 fL Neutrophils (%) (Auto) 80.4 % Lymphocytes (%) (Auto) 6.3 % Monocytes (%) (Auto) 12.8 % Eosinophils (%) (Auto) 0.0 % Basophils (%) (Auto) 0.1 % Neutrophils # (Auto) 15.11 K/uL Lymphocytes # (Auto) 1.18 K/uL Monocytes # (Auto) 2.41 K/uL Eosinophils # (Auto) 0.00 K/uL Basophils # (Auto) 0.02 K/uL RDW Standard Deviation 43.5 fL RDW Coefficient of Variation 13.9 % Immature Granulocyte % (Auto) 0.4 % Immature Granulocyte # (Auto) 0.08 K/uL Sodium Level 136 mmol/L Potassium Level 3.8 mmol/L Chloride Level 99 mmol/L Carbon Dioxide Level 25 mmol/L Anion Gap 12.0 mmol/L Blood Urea Nitrogen 27 mg/dl Creatinine 1.90 mg/dl Est Creatinine Clear Calc Drug Dose 65.8 ml/min Estimated GFR () 55.9 Estimated GFR (Non- 48.3 BUN/Creatinine Ratio 14.0 Random Glucose 146 mg/dl Calcium Level 11.0 mg/dl Total Bilirubin 1.8 mg/dl Direct Bilirubin 0.3 mg/dl Aspartate Amino Transf (AST/SGOT) 13 U/L Alanine Aminotransferase (ALT/SGPT) 32 U/L Alkaline Phosphatase 61 U/L Total Protein 8.8 gm/dl Albumin 4.6 gm/dl Lipase 82 U/L Urine Color KISHA Urine Appearance CLOUDY Urine pH 5.5 Urine Specific [place] 1.037 Urine Protein 2+ Urine Glucose (UA) NEG Urine Ketones 1+ Urine Occult Blood 1+ Urine Nitrite POS Urine Bilirubin NEG Urine Urobilinogen NEG Urine Leukocyte Esterase TRACE Urine WBC (Auto) 1-5 /hpf Urine RBC (Auto) 5-10 /hpf Urine Hyaline Casts (Auto) 1-5 /lpf Urine Epithelial Cells (Auto) 10-20 /lpf Urine Bacteria (Auto) 2+ Urine Crystals CALCIUM OXALATE Urine Pathogenic Casts /lpf Urine Mucus PRESENT Impression (1) Kidney cysts (2) abd pain with hx of possibel crohn disease (3) Vomiting Recommendations YAO: -- Baseline creatinine 0.7 -- Patient is clinically volume contracted. Continue hydration w/ 0.9NS with 20 mEq KCl -- Urinalysis is positive for nitrate & leukocyte esterace. Will check urine culture -- Monitor PRP KIDNEY CYSTS: -- Abdominal CT films reviewed today. Patient has multiple cysts within the kidneys and liver. 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 Discussed in detail w/ patient & his mother this evening. Will check w/ lab re: PKD gene testing -- Will order renal US to obtain baseline measurement of kidney size and volume HYPERCALCEMIA: -- Likely related to OTC Vitamin D therapy -- Stop vitamin D, provide IV hydration. Will check vitamin D level, PTH and serum Mg GI: -- Possible inflammatory colitis. Prednisone as per GI
--- NOTE | 2017-07-08 18:08 | DIAGNOSTIC IMAGING REPORT ---
KUB HISTORY: confirm NGT placement COMPARISON: Abdomen and pelvis CT 07/08/2017. FINDINGS: Multiple distended loops of contrast-filled small bowel are again noted. The majority of the colon is decompressed. This is consistent with the patient's history of a proximal large bowel obstruction. The tip of the nasogastric tube is identified and is located within the distal esophagus. This should be advanced by approximately 15 cm. No renal calculi. No ureteral calculi. No pneumoperitoneum or pneumatosis. IMPRESSION: 1. The tip of the nasogastric tube is located within the distal esophagus. This should be advanced by approximately 15 cm. 2. Large bowel obstruction pattern is again noted. Electronically signed by: Mohsen Pate M.D. 07/08/2017 6:07 PM Dictated Date/Time: 07/08/2017 6:05 PM
[2017-07-08 21:21] LABS: URINE APPEARANCE CLEAR (CLEAR); URINE BILIRUBIN NEG (NEG); URINE COLOR DK YELLOW; URINE NITRITE NEG (NEG); URINE SPECIFIC GRAVITY 1.032 (1.000-1.030); UROBILINOGEN NEG (NEG)
[2017-07-08 21:22] LABS: MANUAL MICROSCOPIC REQUIRED? NO; REVIEW REQ? NO
[2017-07-08 21:41] LABS: URINE PROTIEN/CREAT RATIO 0.2 (0-0.2); URINE TOTAL PROTEIN 49.1 mg/dl (0-11.9)
--- NOTE | 2017-07-08 22:18 | GASTROINTESTINAL CONSULTATION ---
DATE OF CONSULTATION: 07/08/2017 REASON FOR EVALUATION: Abdominal pain and vomiting. HISTORY OF PRESENT ILLNESS: The patient is a 22-year-old who recently underwent for colonoscopy for evaluation of abdominal pain and he was found to have some inflammation in the ileum that was suggestive of ileal Crohn's disease. Biopsies showed acute, active inflammation rather than chronic inflammation and his Crohn's antibodies were negative. There were no granulomas found. There was a presumptive diagnosis of Crohn's disease made and the patient was started on prednisone at 40 mg a day. He has been on this for a couple of weeks and we just saw him in the office last week and started to taper on his steroids. Last evening, he started to have abdominal pain and was vomiting and presented to the Emergency Room, where he was found to have a white count of over 18,000 with left shift. His abdominal film showed air fluid levels, but no evidence of obstruction. He is admitted for bowel rest and IV steroids. CT scan of the abdomen has been ordered for this afternoon. PAST MEDICAL HISTORY: [place] teeth extraction. SOCIAL HISTORY: The patient denies use of alcohol and tobacco. FAMILY HISTORY: Negative for Crohn's disease. MEDICATIONS: Prednisone 30 mg a day, vitamin D 1000 units a day. PHYSICAL EXAMINATION: ABDOMEN: Soft. There is mild tenderness in the mid epigastric area. There is no mass or rebound. IMPRESSION: The patient is having abdominal pain, vomiting, and elevated white count. It is not exactly clear that he has ileal Crohn's disease. We will plan on getting a CT of the abdomen today, keeping him on bowel rest and IV fluids as well as IV Solu-Medrol 20 mg twice a day. Further evaluation will be based on his CT scan and clinical course.
[2017-07-08 23:00] VITALS: BP 125/75; PULSE 107; TEMP 36.3; O2SAT 94
--- NOTE | 2017-07-08 23:01 | DIAGNOSTIC IMAGING REPORT ---
RENAL ULTRASOUND HISTORY: possible polycystic kidney disease. Evaluate size / kidney volume COMPARISON: Abdomen and pelvis CT 07/08/2017. Abdominal ultrasound 05/23/2017. FINDINGS: Right kidney: 9.6 cm. No hydronephrosis. Normal corticomedullary differentiation and cortical thickness. A few peripelvic and cortical cysts are again noted. Dominant cyst measures approximately 2 cm. Left kidney: 11.2 cm. No hydronephrosis. Normal corticomedullary differentiation and cortical thickness. A few peripelvic and cortical cysts are again noted. Bladder: No bladder wall thickening. The bilateral ureteral jets were identified. Trace ascites. IMPRESSION: 1. No hydronephrosis. 2. No significant change in the bilateral renal cysts. 3. The kidneys are normal in size. 4. Trace ascites is again noted. Electronically signed by: Mohsen Pate M.D. 07/08/2017 11:00 PM Dictated Date/Time: 07/08/2017 10:56 PM
[2017-07-09] MEDS: NSS + 20MEQ KCL 1000ML 1,000 ML IV SCH ×2 (05:35→12:57)
[2017-07-09 07:06] VITALS: BP 126/74; PULSE 91; TEMP 37; O2SAT 95
[2017-07-09 07:06] LABS: BUN/CREATININE RATIO 21.3 (10-20); CALCIUM 9.2 mg/dl (8.5-10.1); CREATININE 0.89 mg/dl (0.60-1.40); MAGNESIUM 2.2 mg/dl (1.8-2.4); PHOSPHORUS 2.8 mg/dl (2.5-4.9)
[2017-07-09 07:38] LABS: COMPLETE YES; HEMATOCRIT 40.3 % (42-52); IG% 0.3 %; LYMPH % 7.6 %; LYMPH ABS # 0.75 K/uL (1.2-3.4); MEAN CELL VOLUME 90.4 fL (80-100); MEAN CORPUSCULAR HEMOGLOBIN 29.6 pg (25-34); MEAN CORPUSCULAR HGB CONC 32.8 g/dl (32-36); MEAN PLATELET VOLUME 11.6 fL (7.4-10.4); MONO % 8.2 %; NEUT % 83.9 %; PLATELET COUNT 184 K/uL (130-400); RED BLOOD COUNT 4.46 M/uL (4.7-6.1); WHITE BLOOD COUNT 9.86 K/uL (4.8-10.8)
[2017-07-09] MEDS ORDERED: CEROVITE ADV FORMULA TAB PO SCH (09:00)
[2017-07-09] MEDS: LACTOBACILLUS ACIDOPHILUS (FLORANEX) TAB PO SCH (09:51)
[2017-07-09] MEDS: METHYLPREDNISOLONE IV 20 MG in SYRINGE 0 ML IV SCH ×2 (09:54→20:53)
[2017-07-09] MEDS: ACETAMINOPHEN 325 MG TAB PO PRN (09:59)
--- NOTE | 2017-07-09 10:07 | Nephrology Progress Note ---
Nephrology Progress Note Date of Service Jul 09, 2017. Chief Complaint Follow up evaluation of YAO, kidney cysts Subjective Mr. Armenta was seen & examined in his hospital room this morning. He had an NG tube placed to ILWS overnight. He is uncomfortable due to the tube but notes that his abdominal distention is improved. He reports one bowel movement this morning. Review of Systems Constitutional: No fever Cardiovascular: No chest pain Respiratory: No dyspnea at rest Abdomen: No pain Extremities: No leg edema A complete review of systems was performed. Pertinent positives are noted above. All other systems are negative. Vital Signs Last 8 Hrs Date Time Temp Pulse Resp B/P (MAP) Pulse Ox O2 Delivery O2 Flow Rate FiO2 07/09/17 07:20 Room Air 07/09/17 07:06 37.0 91 18 126/74 (91) 95 Room Air Last Recorded Weight Weight (Kilograms): 83.500 Physical Exam General Appearance: no apparent distress Head: normocephalic, atraumatic Eyes: PERRL, EOMI Neck: no adenopathy Respiratory/Chest: lungs clear, no respiratory distress Cardiovascular: regular rate, rhythm, no murmur Abdomen/GI: soft (hypoactive bowel sounds. No guarding) Extremities/Musculoskelatal: no calf tenderness, no pedal edema Neurologic/Psych: alert, oriented x 3 Family History Cancer Diabetes mellitus Hypertension Kidney disease Kidney stones Seizures Negative for ADPKD / CKD / ESRD. Also negative for Crohn's disease Social History Smokeless Tobacco Use: No Drug Use: none Marital Status: single Occupation: employed Laboratory Results Past 24 Hours 07/09/17 06:05 Red Blood Count 4.46, Mean Corpuscular Volume 90.4, Mean Corpuscular Hemoglobin 29.6, Mean Corpuscular Hemoglobin Concent 32.8, Mean Platelet Volume 11.6, Neutrophils (%) (Auto) 83.9, Lymphocytes (%) (Auto) 7.6, Monocytes (%) (Auto) 8.2, Eosinophils (%) (Auto) 0.0, Basophils (%) (Auto) 0.0, Neutrophils # (Auto) 8.27, Lymphocytes # (Auto) 0.75, Monocytes # (Auto) 0.81, Eosinophils # (Auto) 0.00, Basophils # (Auto) 0.00 07/09/17 06:05 Test 07/08/17 17:17 07/08/17 21:00 07/09/17 00:09 07/09/17 06:05 25-Hydroxy Vitamin D Total 20.1 ng/ml (30-100) Parathyroid Hormone (Intact) 51.1 pg/mL (11.1-79.5) Urine Color DK YELLOW Urine Appearance CLEAR (CLEAR) Urine pH 7.0 (4.5-7.5) Urine Specific [place] 1.032 (1.000-1.030) Urine Protein 1+ (NEG) Urine Glucose (UA) NEG (NEG) Urine Ketones 1+ (NEG) Urine Occult Blood NEG (NEG) Urine Nitrite NEG (NEG) Urine Bilirubin NEG (NEG) Urine Urobilinogen NEG (NEG) Urine Leukocyte Esterase NEG (NEG) Urine WBC (Auto) 1-5 /hpf (0-5) Urine RBC (Auto) 0-4 /hpf (0-4) Urine Hyaline Casts (Auto) 1-5 /lpf (0-5) Urine Epithelial Cells (Auto) 10-20 /lpf (0-5) Urine Bacteria (Auto) NEG (NEG) Urine Random Creatinine 270.0 mg/dl Urine Random Total Protein 49.1 mg/dl (0-11.9) Urine Protein/Creatinine Ratio 0.2 (0-0.2) Stool Occult Blood POSITIVE (NEGATIVE) White Blood Count 9.86 K/uL (4.8-10.8) Red Blood Count 4.46 M/uL (4.7-6.1) Hemoglobin 13.2 g/dL (14.0-18.0) Hematocrit 40.3 % (42-52) Mean Corpuscular Volume 90.4 fL (80-100) Mean Corpuscular Hemoglobin 29.6 pg (25-34) Mean Corpuscular Hemoglobin Concent 32.8 g/dl (32-36) Platelet Count 184 K/uL (130-400) Mean Platelet Volume 11.6 fL (7.4-10.4) Neutrophils (%) (Auto) 83.9 % Lymphocytes (%) (Auto) 7.6 % Monocytes (%) (Auto) 8.2 % Eosinophils (%) (Auto) 0.0 % Basophils (%) (Auto) 0.0 % Neutrophils # (Auto) 8.27 K/uL (1.4-6.5) Lymphocytes # (Auto) 0.75 K/uL (1.2-3.4) Monocytes # (Auto) 0.81 K/uL (0.11-0.59) Eosinophils # (Auto) 0.00 K/uL (0-0.5) Basophils # (Auto) 0.00 K/uL (0-0.2) RDW Standard Deviation 47.3 fL (36.4-46.3) RDW Coefficient of Variation 14.3 % (11.5-14.5) Immature Granulocyte % (Auto) 0.3 % Immature Granulocyte # (Auto) 0.03 K/uL (0.00-0.02) Anion Gap 6.0 mmol/L (3-11) Est Creatinine Clear Calc Drug Dose 140.5 ml/min Estimated GFR () 138.7 Estimated GFR (Non- 119.7 BUN/Creatinine Ratio 21.3 (10-20) Calcium Level 9.2 mg/dl (8.5-10.1) Phosphorus Level 2.8 mg/dl (2.5-4.9) Magnesium Level 2.2 mg/dl (1.8-2.4) Date/Time Source Procedure Growth Status 07/09/17 00:09 Stool WBC Smear - Final Complete 07/09/17 00:09 Stool C.difficile Toxin B Gene (PCR) - Final No C. difficile toxin B gene detected Complete Allergies Coded Allergies: No Known Allergies (Unverified , 07/08/17) Medications Current Inpatient Medications Medications (Trade) Dose Ordered Sig/Jay Jay Route Start Time Stop Time Status Last Admin Dose Admin Acetaminophen (Tylenol Tab) 650 mg Q4H PRN PO 07/08/17 13:00 08/07/17 12:59 07/08/17 14:41 650 MG Polyethylene (Miralax Powder Packet) 17 gm DAILY PRN PO 07/08/17 13:00 08/07/17 12:59 Zolpidem Tartrate (Ambien Tab) 5 mg HSZ PRN PO 07/08/17 13:00 08/07/17 12:59 Ondansetron HCl (Zofran Inj) 4 mg Q6H PRN IV 07/08/17 13:00 08/07/17 12:59 07/08/17 20:03 4 MG Potassium Chloride/Sodium Chloride 1,000 ml @ 125 mls/hr Q8H IV 07/08/17 13:55 08/07/17 13:54 07/09/17 05:35 125 MLS/HR Ertapenem 1000 mg/ Sodium Chloride 60 ml @ 120 mls/hr Q24H IV 07/08/17 14:00 07/18/17 13:59 07/08/17 14:36 120 MLS/HR Lactobacillus Acidophilus (Floranex Tab) 1 tab DAILY PO 07/09/17 09:00 08/08/17 08:59 Methylprednisolone Sodium Succinate 20 mg/Syringe 0.32 ml @ 1.5 mls/min BID IV 07/08/17 14:00 08/07/17 13:59 07/08/17 21:08 1.5 MLS/MIN Impression (1) Kidney cysts (2) Acute kidney injury (3) abd pain with hx of possibel crohn disease (4) Vomiting Recommendations YAO: -- Resolved w/ IV hydration -- Patient remains euvolemic to volume contracted. Continue hydration w/ 0.9NS with 20 mEq KCl. Will reduce rate to 75 cc/hr -- Monitor PRP KIDNEY CYSTS: -- Renal US films and report reviewed this am: R 10 cm, L 11 cm. Cysts seen within each kidney -- Provided patient with phone number to [employer] . He can call to determine whether genetic testing for PKD is covered by his insurance HYPERCALCEMIA: -- Resolved. This was likely related to OTC Vitamin D therapy. Vitamin D level was mildly low. PTH was within normal limits -- Continue to hold OTC Vitamin D. Monitor serum calcium and albumin GI: -- GI consultation reviewed this am. Patient has inflammation of the ileum. He likely has ileal Crohn's. Continue Prednisone as per GI ID: -- Urine culture is pending -- Stool WBC's are negative -- Clostridium difficile toxin assay was negative -- Stool Shiga toxin is pending
--- NOTE | 2017-07-09 11:36 | Progress Note ---
Subjective Date of Service: Jul 09, 2017. Subjective Pt evaluation today including: conversation w/ patient, physical exam, chart review, lab review, review of studies 22 yo male who is in his first day of hospitalization. Patient was admitted yesterday for bowel obstruction and possible urinary tract infection. Patient was had a colonoscopy prior to this hospitalization in which there is a question that patient had crohns. Patient was admitted for abdominal pain, nausea, vomiting. Patient was placed in a NSG tube. Patient had about 2.5 liters removed over the course of the day. Patient now is reporting significant improvement. Only complains of sore throat, and epigastric soreness. No longer having N/V, NOR SEVERE ABDOMINAL PAIN. Problem List Medical Problems: (1) Abdominal pain Status: Acute (2) Acute renal insufficiency Status: Acute (3) Enterocolitis Status: Acute (4) Kidney cysts Status: Acute (5) Vomiting Status: Acute Review of Systems Constitutional: No fever, No chills, No sweats Eyes: No worsening of vision, No eye pain, No discharge ENT: + sore throat, No unusual epistaxis, No nasal symptoms, No tinnitus Respiratory: No cough, No sputum Cardiac: No chest pain, No orthopnea Abdomen: + pain (mild epigastric pain), No nausea, No vomiting, No diarrhea Musculoskeletal: No joint pain Male : No dysuria Neurologic: No memory loss, No paralysis Psychiatric: No depression symptoms, No anhedonism Heme: No abnormal bleeding/bruising Objective Vital Signs Date Time Temp Pulse Resp B/P (MAP) Pulse Ox O2 Delivery O2 Flow Rate FiO2 07/09/17 07:20 Room Air 07/09/17 07:06 37.0 91 18 126/74 (91) 95 Room Air 07/08/17 23:41 Room Air 07/08/17 23:00 36.3 107 16 125/75 (92) 94 Room Air 07/08/17 15:49 36.9 79 18 135/83 (100) 96 Room Air 07/08/17 15:30 96 Room Air 07/08/17 13:30 36.9 105 20 129/91 (104) 96 Room Air 07/08/17 13:24 105 16 126/76 97 Room Air 07/08/17 12:18 36.6 94 18 134/83 96 Room Air 07/08/17 12:12 111 18 134/83 95 Room Air Physical Exam General Appearance: WD/WN, no apparent distress Eyes: normal inspection Respiratory/Chest: chest non-tender, lungs clear, normal breath sounds Cardiovascular: regular rate, rhythm, no edema, no gallop Abdomen: normal bowel sounds, non tender, soft Extremities: normal range of motion, non-tender Skin: normal color, no rash Laboratory Results Last 24 Hours Test 07/08/17 17:17 07/08/17 21:00 07/09/17 00:09 07/09/17 06:05 25-Hydroxy Vitamin D Total 20.1 ng/ml Parathyroid Hormone (Intact) 51.1 pg/mL Urine Color DK YELLOW Urine Appearance CLEAR Urine pH 7.0 Urine Specific [place] 1.032 Urine Protein 1+ Urine Glucose (UA) NEG Urine Ketones 1+ Urine Occult Blood NEG Urine Nitrite NEG Urine Bilirubin NEG Urine Urobilinogen NEG Urine Leukocyte Esterase NEG Urine WBC (Auto) 1-5 /hpf Urine RBC (Auto) 0-4 /hpf Urine Hyaline Casts (Auto) 1-5 /lpf Urine Epithelial Cells (Auto) 10-20 /lpf Urine Bacteria (Auto) NEG Urine Random Creatinine 270.0 mg/dl Urine Random Total Protein 49.1 mg/dl Urine Protein/Creatinine Ratio 0.2 Stool Occult Blood POSITIVE White Blood Count 9.86 K/uL Red Blood Count 4.46 M/uL Hemoglobin 13.2 g/dL Hematocrit 40.3 % Mean Corpuscular Volume 90.4 fL Mean Corpuscular Hemoglobin 29.6 pg Mean Corpuscular Hemoglobin Concent 32.8 g/dl Platelet Count 184 K/uL Mean Platelet Volume 11.6 fL Neutrophils (%) (Auto) 83.9 % Lymphocytes (%) (Auto) 7.6 % Monocytes (%) (Auto) 8.2 % Eosinophils (%) (Auto) 0.0 % Basophils (%) (Auto) 0.0 % Neutrophils # (Auto) 8.27 K/uL Lymphocytes # (Auto) 0.75 K/uL Monocytes # (Auto) 0.81 K/uL Eosinophils # (Auto) 0.00 K/uL Basophils # (Auto) 0.00 K/uL RDW Standard Deviation 47.3 fL RDW Coefficient of Variation 14.3 % Immature Granulocyte % (Auto) 0.3 % Immature Granulocyte # (Auto) 0.03 K/uL Sodium Level 144 mmol/L Potassium Level 4.0 mmol/L Chloride Level 111 mmol/L Carbon Dioxide Level 27 mmol/L Anion Gap 6.0 mmol/L Blood Urea Nitrogen 19 mg/dl Creatinine 0.89 mg/dl Est Creatinine Clear Calc Drug Dose 140.5 ml/min Estimated GFR () 138.7 Estimated GFR (Non- 119.7 BUN/Creatinine Ratio 21.3 Random Glucose 123 mg/dl Calcium Level 9.2 mg/dl Phosphorus Level 2.8 mg/dl Magnesium Level 2.2 mg/dl Assessment and Plan Abdominal pain secondary to GI obstruction Currently has NG tube with low intermittent suction (decreased from 60 to 40). Abd. pain has significantly improved. Patient had about 2.5 liters removed via NG tube. Awaiting further management by GI team Abnormal UA First UA was abnormal with nitrites and WBC. Patient placed on ertapenem. Repeat UA was negative. Awaiting cultures. At this time, will change to rocephin. Patient though is not spetic. nor has bactermeia. Cultures are pending. Polycystic kidney disease with ARF Creatinine improved. will decrease IVF fluids today as noted by nephrology. Continued [facility] stay due to: inadequate po fluid intake (continues to require NG tube) Discharge planning: home
[2017-07-09] MEDS: CEFTRIAXONE SOD INJ 1 GM in DEXTROSE 5% ADD-VANTAGE 50ML 50 ML IV SCH (12:57)
[2017-07-09 15:00] VITALS: BP 137/82; PULSE 79; TEMP 37.1; O2SAT 94
--- NOTE | 2017-07-09 17:47 | GASTROENTEROLOGY PROGRESS NOTE ---
DATE: 07/09/2017 SUBJECTIVE: The patient is doing better today and reports that over the last couple hours NG tube suction has diminished completely. He did have some gastric output earlier today, but this has slowed. He is on IV Solu-Medrol. The patient denies any fever or chills. The patient had similar features that prompted prior hospitalization for which the patient was on prednisone 40 mg daily, and last week, his dose was reduced to 30 mg and symptoms returned. The patient's CT of the abdomen from July 08 suggest focal thickening in the mid descending colon that may reflect colitis. There appears to be a focal transition point with a distended fluid filled cecum. The small bowel shows distended loop throughout the abdomen consistent with a proximal large bowel obstruction. There is edema surrounding the small bowel loop with a cecal distention at 9 cm. The small bowel is distended to 4.5 cm. The patient has a history of polycystic kidney disease. The patient describes that he had an outpatient CT recently, although this is not apparent in the [facility] Medical record. VITAL SIGNS: Today, blood pressure currently 137/82, respirations 20, 94% on room air, heart rate 79, afebrile 37.1. MEDICATIONS: Include potassium chloride, ceftriaxone, lactobacillus, methylprednisolone 40 mg daily, Ambien and Zofran. LABORATORY STUDIES: Today show white count down to 9.8 from 18.8, hemoglobin is 13.2, although yesterday was 19.1 and suspect a hemoconcentration, platelets are 184,000. The patient's BUN and creatinine are 19 and 0.8, potassium is normal at 4.0, calcium normal at 9.2. Stools are positive for occult blood today. PHYSICAL EXAMINATION: GENERAL: The patient is awake, alert and oriented x3 with an NG tube draining dark brown material. LUNGS: Clear to auscultation. HEART: Normal S1, S2. HEENT: Sclerae are anicteric. Conjunctivae are moist. ABDOMEN: Soft, nontender, nondistended with good bowel sounds. I believe there are abdominal bruits noted in the upper to mid abdominal region of uncertain origin. EXTREMITIES: Normal range of motion for extremities. Without clubbing, cyanosis or edema. RECTAL: Deferred at this time. ALLERGIES: The patient has no known drug allergies. IMPRESSION AND PLAN: The patient with features of a bowel obstruction that seem to be proximal colon with a transition point in the mid ascending region. There is also small bowel dilation. Clinically, NG output has diminished significantly and has not had any over the past couple of hours. The source of the patient's bowel obstruction is unclear. There was evidence of active ileitis on prior colonoscopy and the colon had a normal appearance endoscopically. I made the following recommendations: At some point a repeat colonoscopy to address the proximal colon may be necessary and provide sampling. This, however, will require a bowel prep. I will look for any prior imaging studies of the small bowel such as enteroscopy or small bowel follow through to see if there are specific focal areas of concern. Although Crohn's disease is a possibility and the patient has not used chronic NSAIDs, the etiology remains unclear. There are abdominal bruits, although his age would make vascular insufficiency to the intestines less likely. We will continue to follow with you. Would monitor stool output (which the patient has made a small amount over the last day) and gastric outputs. If there is no continued output from the NG tube, this could be clamped and in several hours gastric residuals can be obtained. LEANDERD
[2017-07-09] MEDS: ZOLPIDEM TARTRATE 5 MG TAB PO PRN (22:32)
[2017-07-09 22:57] VITALS: BP 135/79; PULSE 90; TEMP 36.6; O2SAT 95
[2017-07-10] MEDS: NSS + 20MEQ KCL 1000ML 1,000 ML IV SCH ×2 (01:03→14:23)
[2017-07-10 07:18] VITALS: BP 127/71; PULSE 82; TEMP 36.9; O2SAT 96
[2017-07-10 07:37] LABS: BASO % 0.1 %; BASO ABS # 0.01 K/uL (0-0.2); COMPLETE YES; HEMATOCRIT 38.7 % (42-52); IG% 0.3 %; LYMPH % 11.8 %; LYMPH ABS # 1.34 K/uL (1.2-3.4); MEAN CELL VOLUME 91.5 fL (80-100); MEAN CORPUSCULAR HEMOGLOBIN 29.3 pg (25-34); MEAN PLATELET VOLUME 11.6 fL (7.4-10.4); MONO % 8.2 %; NEUT % 79.6 %; PLATELET COUNT 182 K/uL (130-400); RED BLOOD COUNT 4.23 M/uL (4.7-6.1); WHITE BLOOD COUNT 11.37 K/uL (4.8-10.8)
[2017-07-10 08:03] LABS: BUN/CREATININE RATIO 25.5 (10-20); CALCIUM 9.6 mg/dl (8.5-10.1); CREATININE 0.87 mg/dl (0.60-1.40); POTASSIUM 4.1 mmol/L (3.5-5.1)
[2017-07-10] MEDS: LACTOBACILLUS ACIDOPHILUS (FLORANEX) TAB PO SCH (09:33)
[2017-07-10] MEDS: METHYLPREDNISOLONE IV 20 MG in SYRINGE 0 ML IV SCH ×2 (09:40→21:20)
--- NOTE | 2017-07-10 10:11 | Nephrology Progress Note ---
Nephrology Progress Note Date of Service Jul 10, 2017. Chief Complaint Follow up evaluation of YAO, kidney cysts Subjective Mr. Armenta was seen & examined in his hospital room this morning. He continues to have drainage from his NG tube. He denies fever, flank discomfort or abdominal pain. Review of Systems Constitutional: No fever Cardiovascular: No chest pain Respiratory: No dyspnea at rest Abdomen: No pain Extremities: No leg edema A complete review of systems was performed. Pertinent positives are noted above. All other systems are negative. Vital Signs Last 8 Hrs Date Time Temp Pulse Resp B/P (MAP) Pulse Ox O2 Delivery O2 Flow Rate FiO2 07/10/17 07:20 Room Air 07/10/17 07:18 36.9 82 17 127/71 (89) 96 Room Air Last Recorded Weight Weight (Kilograms): 83.500 Physical Exam General Appearance: no apparent distress Head: normocephalic, atraumatic Eyes: PERRL, EOMI Neck: no adenopathy Respiratory/Chest: lungs clear, no respiratory distress Cardiovascular: regular rate, rhythm Abdomen/GI: soft (hypoactive bowel sounds) Extremities/Musculoskelatal: no calf tenderness, no pedal edema Neurologic/Psych: alert, oriented x 3 Family History Cancer Diabetes mellitus Hypertension Kidney disease Kidney stones Seizures Negative for ADPKD / CKD / ESRD. Also negative for Crohn's disease Social History Smokeless Tobacco Use: No Drug Use: none Marital Status: single Occupation: employed Laboratory Results Past 24 Hours 07/10/17 07:02 Red Blood Count 4.23, Mean Corpuscular Volume 91.5, Mean Corpuscular Hemoglobin 29.3, Mean Corpuscular Hemoglobin Concent 32.0, Mean Platelet Volume 11.6, Neutrophils (%) (Auto) 79.6, Lymphocytes (%) (Auto) 11.8, Monocytes (%) (Auto) 8.2, Eosinophils (%) (Auto) 0.0, Basophils (%) (Auto) 0.1, Neutrophils # (Auto) 9.06, Lymphocytes # (Auto) 1.34, Monocytes # (Auto) 0.93, Eosinophils # (Auto) 0.00, Basophils # (Auto) 0.01 07/10/17 07:02 Test 07/10/17 07:02 White Blood Count 11.37 K/uL (4.8-10.8) Red Blood Count 4.23 M/uL (4.7-6.1) Hemoglobin 12.4 g/dL (14.0-18.0) Hematocrit 38.7 % (42-52) Mean Corpuscular Volume 91.5 fL (80-100) Mean Corpuscular Hemoglobin 29.3 pg (25-34) Mean Corpuscular Hemoglobin Concent 32.0 g/dl (32-36) Platelet Count 182 K/uL (130-400) Mean Platelet Volume 11.6 fL (7.4-10.4) Neutrophils (%) (Auto) 79.6 % Lymphocytes (%) (Auto) 11.8 % Monocytes (%) (Auto) 8.2 % Eosinophils (%) (Auto) 0.0 % Basophils (%) (Auto) 0.1 % Neutrophils # (Auto) 9.06 K/uL (1.4-6.5) Lymphocytes # (Auto) 1.34 K/uL (1.2-3.4) Monocytes # (Auto) 0.93 K/uL (0.11-0.59) Eosinophils # (Auto) 0.00 K/uL (0-0.5) Basophils # (Auto) 0.01 K/uL (0-0.2) RDW Standard Deviation 47.8 fL (36.4-46.3) RDW Coefficient of Variation 14.3 % (11.5-14.5) Immature Granulocyte % (Auto) 0.3 % Immature Granulocyte # (Auto) 0.03 K/uL (0.00-0.02) Anion Gap 4.0 mmol/L (3-11) Est Creatinine Clear Calc Drug Dose 143.7 ml/min Estimated GFR () 140.0 Estimated GFR (Non- 120.8 BUN/Creatinine Ratio 25.5 (10-20) Calcium Level 9.6 mg/dl (8.5-10.1) Allergies Coded Allergies: No Known Allergies (Unverified , 07/08/17) Medications Current Inpatient Medications Medications (Trade) Dose Ordered Sig/Jay Jay Route Start Time Stop Time Status Last Admin Dose Admin Acetaminophen (Tylenol Tab) 650 mg Q4H PRN PO 07/08/17 13:00 08/07/17 12:59 07/09/17 09:59 650 MG Polyethylene (Miralax Powder Packet) 17 gm DAILY PRN PO 07/08/17 13:00 08/07/17 12:59 Zolpidem Tartrate (Ambien Tab) 5 mg HSZ PRN PO 07/08/17 13:00 08/07/17 12:59 07/09/17 22:32 5 MG Ondansetron HCl (Zofran Inj) 4 mg Q6H PRN IV 07/08/17 13:00 08/07/17 12:59 07/08/17 20:03 4 MG Lactobacillus Acidophilus (Floranex Tab) 1 tab DAILY PO 07/09/17 09:00 08/08/17 08:59 07/10/17 09:33 1 TAB Methylprednisolone Sodium Succinate 20 mg/Syringe 0.32 ml @ 1.5 mls/min BID IV 07/08/17 14:00 08/07/17 13:59 07/10/17 09:40 1.5 MLS/MIN Potassium Chloride/Sodium Chloride 1,000 ml @ 75 mls/hr [id number] IV 07/09/17 12:00 08/08/17 11:59 07/10/17 01:03 75 MLS/HR Ceftriaxone Sodium 1 gm/ Dextrose 50 ml @ 100 mls/hr Q24H IV 07/09/17 12:00 07/19/17 11:59 07/09/17 12:57 100 MLS/HR Impression (1) Kidney cysts (2) Acute kidney injury (3) abd pain with hx of possibel crohn disease (4) Vomiting Recommendations YAO: -- Resolved w/ IV hydration -- Patient remains euvolemic to volume contracted. Continue hydration w/ 0.9NS with 20 mEq KCl at 75 cc/hr -- Monitor PRP KIDNEY CYSTS: -- Renal US films and report reviewed this am: R 10 cm, L 11 cm. Cysts seen within each kidney -- Provided patient with phone number to [employer] . He can call to determine whether genetic testing for PKD is covered by his insurance HYPERCALCEMIA: -- Resolved. This was likely related to OTC Vitamin D therapy. Vitamin D level was mildly low. PTH was within normal limits -- Continue to hold OTC Vitamin D. Monitor serum calcium and albumin GI: -- GI consultation reviewed this am. Patient has inflammation of the ileum. He likely has ileal Crohn's. Continue Prednisone as per GI. NG tube remains in place ID: -- Urine culture was negative for growth -- Stool WBC's are negative -- Clostridium difficile toxin assay was negative -- Stool Shiga toxin is pending
[2017-07-10] MEDS: CEFTRIAXONE SOD INJ 1 GM in DEXTROSE 5% ADD-VANTAGE 50ML 50 ML IV SCH (13:00)
[2017-07-10 15:00] VITALS: BP 114/71; PULSE 80; TEMP 37; O2SAT 95
--- NOTE | 2017-07-10 16:41 | Progress Note ---
Subjective Date of Service: Jul 10, 2017. Subjective Pt evaluation today including: conversation w/ patient, physical exam, chart review, lab review, review of studies Pt evaluation today including: conversation w/ patient, physical exam, chart review, lab review, review of studies 22 yo male who is in his second day of hospitalization. Patient was admitted for bowel obstruction and possible urinary tract infection. Patient was had a colonoscopy prior to this hospitalization in which there is a question that patient had crohns. Patient no longer having abdominal pain, nausea, vomiting. Patient is reporting significant improvement. Problem List Medical Problems: (1) Abdominal pain Status: Acute (2) Acute renal insufficiency Status: Acute (3) Enterocolitis Status: Acute (4) Kidney cysts Status: Acute (5) Vomiting Status: Acute Review of Systems All Other Systems: Reviewed and Negative Medications Current Inpatient Medications Medications (Trade) Dose Ordered Sig/Jay Jay Route Start Time Stop Time Status Last Admin Dose Admin Acetaminophen (Tylenol Tab) 650 mg Q4H PRN PO 07/08/17 13:00 08/07/17 12:59 07/09/17 09:59 650 MG Polyethylene (Miralax Powder Packet) 17 gm DAILY PRN PO 07/08/17 13:00 08/07/17 12:59 Zolpidem Tartrate (Ambien Tab) 5 mg HSZ PRN PO 07/08/17 13:00 08/07/17 12:59 07/09/17 22:32 5 MG Ondansetron HCl (Zofran Inj) 4 mg Q6H PRN IV 07/08/17 13:00 08/07/17 12:59 07/08/17 20:03 4 MG Lactobacillus Acidophilus (Floranex Tab) 1 tab DAILY PO 07/09/17 09:00 08/08/17 08:59 07/10/17 09:33 1 TAB Methylprednisolone Sodium Succinate 20 mg/Syringe 0.32 ml @ 1.5 mls/min BID IV 07/08/17 14:00 08/07/17 13:59 07/10/17 09:40 1.5 MLS/MIN Potassium Chloride/Sodium Chloride 1,000 ml @ 75 mls/hr [id number] IV 07/09/17 12:00 08/08/17 11:59 07/10/17 14:23 75 MLS/HR Ceftriaxone Sodium 1 gm/ Dextrose 50 ml @ 100 mls/hr Q24H IV 07/09/17 12:00 07/19/17 11:59 07/10/17 13:00 100 MLS/HR Pantoprazole Sodium 40 mg/ Syringe 10 ml @ 5 mls/min DAILY@ IV 07/10/17 21:00 08/09/17 20:59 Objective Vital Signs Date Time Temp Pulse Resp B/P (MAP) Pulse Ox O2 Delivery O2 Flow Rate FiO2 07/10/17 15:00 37.0 80 20 114/71 (85) 95 Room Air 07/10/17 07:20 Room Air 07/10/17 07:18 36.9 82 17 127/71 (89) 96 Room Air 07/09/17 22:57 36.6 90 16 135/79 (97) 95 Room Air 07/09/17 20:00 Room Air Physical Exam General Appearance: WD/WN, no apparent distress Eyes: normal inspection Neck: supple, no adenopathy Respiratory/Chest: chest non-tender, lungs clear, normal breath sounds Cardiovascular: regular rate, rhythm, no edema, no gallop, no JVD Abdomen: normal bowel sounds, non tender, soft, no organomegaly Extremities: normal range of motion, normal inspection Neurologic/Psychiatric: alert, normal mood/affect Skin: normal color Laboratory Results Last 24 Hours Test 07/10/17 07:02 White Blood Count 11.37 K/uL Red Blood Count 4.23 M/uL Hemoglobin 12.4 g/dL Hematocrit 38.7 % Mean Corpuscular Volume 91.5 fL Mean Corpuscular Hemoglobin 29.3 pg Mean Corpuscular Hemoglobin Concent 32.0 g/dl Platelet Count 182 K/uL Mean Platelet Volume 11.6 fL Neutrophils (%) (Auto) 79.6 % Lymphocytes (%) (Auto) 11.8 % Monocytes (%) (Auto) 8.2 % Eosinophils (%) (Auto) 0.0 % Basophils (%) (Auto) 0.1 % Neutrophils # (Auto) 9.06 K/uL Lymphocytes # (Auto) 1.34 K/uL Monocytes # (Auto) 0.93 K/uL Eosinophils # (Auto) 0.00 K/uL Basophils # (Auto) 0.01 K/uL RDW Standard Deviation 47.8 fL RDW Coefficient of Variation 14.3 % Immature Granulocyte % (Auto) 0.3 % Immature Granulocyte # (Auto) 0.03 K/uL Sodium Level 144 mmol/L Potassium Level 4.1 mmol/L Chloride Level 110 mmol/L Carbon Dioxide Level 30 mmol/L Anion Gap 4.0 mmol/L Blood Urea Nitrogen 22 mg/dl Creatinine 0.87 mg/dl Est Creatinine Clear Calc Drug Dose 143.7 ml/min Estimated GFR () 140.0 Estimated GFR (Non- 120.8 BUN/Creatinine Ratio 25.5 Random Glucose 99 mg/dl Calcium Level 9.6 mg/dl Assessment and Plan Abdominal pain secondary to GI obstruction Currently has NG tube with low intermittent suction (40). Abd. pain has significantly improved. Patient had about 3.5 liters removed via NG tube. GI is on board. Recommends that once NG tube stops removing fluid, to clamp. Complicated urinary tract infection Currently on day 2 of rocephin. Patient is showing improvement. Patient is not in spesis. Culture pending. Polycystic kidney disease with ARF Creatinine improved. will decrease IVF fluids today as noted by nephrology. Continued [facility] stay due to: inadequate po fluid intake (continues to require NG tube) Discharge planning: home
--- NOTE | 2017-07-10 20:44 | DIAGNOSTIC IMAGING REPORT ---
ABDOMEN 2 VIEWS CLINICAL HISTORY: assess for changes in colon diameter, obstruction/ileus pain COMPARISON STUDY: No previous studies for comparison. FINDINGS: Bowel pattern is nonobstructive. No significant bowel distention. Nasogastric tube within the stomach. IMPRESSION: Nonobstructive bowel pattern with no evidence of bowel distention. Nasogastric tube within the mid stomach. The above report was generated using voice recognition software. It may contain grammatical, syntax or spelling errors. Electronically signed by: Dae Andrea M.D. 07/10/2017 8:43 PM Dictated Date/Time: 07/10/2017 8:42 PM
[2017-07-10] MEDS: PANTOprazole INJ 40 MG in SYRINGE 0 ML IV SCH (21:20)
[2017-07-10] MEDS: ZOLPIDEM TARTRATE 5 MG TAB PO PRN (21:20)
--- NOTE | 2017-07-10 22:45 | GASTROENTEROLOGY PROGRESS NOTE ---
DATE: 07/10/2017 SUBJECTIVE: The patient had done reasonably well overnight with his tube clamped. However, this morning the patient developed nausea and the patient was eventually replaced on NG tube today. The contents are a dark brown and some reports of slight red blood was made. The patient currently does not have any nausea, vomiting or abdominal pain and is passing some gas, although is only having scant if any passage of stool. LABORATORY STUDIES: Today; white count being is up at 11.3 compared with 9.8 yesterday, hemoglobin is trending downward and is 12.4 with a normal MCV of 91.5, platelets are 182,000. His serum chemistries show BUN and creatinine of 22 and 0.8. Potassium is normal at 4.1. Stools were occult positive yesterday. MEDICATIONS: Include; lactobacillus, ceftriaxone, methylprednisolone, Ambien and Zofran. REVIEW OF SYSTEMS: Otherwise noncontributory by 13-point exam. PHYSICAL EXAMINATION: VITAL SIGNS: Today show temperature afebrile at 37, blood pressure 114/71, 95% on room air, respirations 20 and heart rate 80. GENERAL: The patient is awake, alert and oriented x3, with an NG tube draining a very dark brown to black toleration through the tube. LUNGS: Clear to auscultation. HEART: Normal S1, S2. ABDOMEN: Soft, nontender and nondistended with positive bowel sounds. There is perhaps a faint bruit in the midline in the epigastrium. Sclerae are anicteric. conjunctiva moist. There is no evidence of ascites or shifting dullness. EXTREMITIES: Without clubbing, cyanosis or edema. RECTAL: Deferred. I did find and access earlier CT scans from May. Overall, these show a pattern of a potential transition zone in the proximal ascending colon, although colonoscopy did not reveal any such changes in the colon lining and only inflammation at the terminal ileal region which was active inflammation. IMPRESSION AND PLAN: At the present time, the patient still has features of at least a partial obstruction with return of NG tube output. This is dark in appearance. I will place the patient on pantoprazole 40 mg IV twice daily and will obtain obstruction series tonight to see if there is any change in the luminal diameters or features of ileus or obstruction. Goal is to maintain electrolytes including potassium, calcium, magnesium, phosphorous and these should be sampled with tomorrow's labs. At the present time, I do not believe the patient would tolerate a bowel preparation well. We will continue to follow with you. Would also continue IV steroids and follow NG tube output closely as well as stool outputs. All questions were answered for the patient. LEANDERD
[2017-07-10 23:40] VITALS: BP 122/76; PULSE 95; TEMP 36.8; O2SAT 95
[2017-07-11] MEDS: NSS + 20MEQ KCL 1000ML 1,000 ML IV SCH ×2 (04:04→16:57)
[2017-07-11 08:05] LABS: COMPLETE YES; HEMATOCRIT 39.7 % (42-52); IG% 0.2 %; LYMPH % 13.6 %; LYMPH ABS # 1.39 K/uL (1.2-3.4); MEAN CELL VOLUME 91.7 fL (80-100); MEAN CORPUSCULAR HEMOGLOBIN 29.3 pg (25-34); MEAN PLATELET VOLUME 11.4 fL (7.4-10.4); MONO % 8.2 %; PLATELET COUNT 193 K/uL (130-400); RED BLOOD COUNT 4.33 M/uL (4.7-6.1)
[2017-07-11 08:13] VITALS: BP 130/82; PULSE 60; TEMP 36.6; O2SAT 95
[2017-07-11 08:30] LABS: BUN/CREATININE RATIO 30.4 (10-20); CALCIUM 9.6 mg/dl (8.5-10.1); CREATININE 0.84 mg/dl (0.60-1.40); POTASSIUM 4.2 mmol/L (3.5-5.1)
[2017-07-11 08:46] LABS: MAGNESIUM 2.2 mg/dl (1.8-2.4); PHOSPHORUS 3.8 mg/dl (2.5-4.9)
[2017-07-11] MEDS: METHYLPREDNISOLONE IV 20 MG in SYRINGE 0 ML IV SCH ×2 (09:45→21:01)
[2017-07-11] MEDS: PANTOprazole INJ 40 MG in SYRINGE 0 ML IV SCH ×2 (09:45→21:00)
[2017-07-11] MEDS: LACTOBACILLUS ACIDOPHILUS (FLORANEX) TAB PO SCH (09:45)
--- NOTE | 2017-07-11 10:30 | Nephrology Progress Note ---
Nephrology Progress Note Date of Service Jul 11, 2017. Chief Complaint Follow up evaluation of YAO, kidney cysts Subjective Mr. Armenta was seen & examined in his hospital room this morning. NG tube was clamped briefly yesterday but he again required ILWS overnight. He currently denies fever or abdominal pain. Review of Systems Constitutional: No fever Cardiovascular: No chest pain Respiratory: No dyspnea at rest Abdomen: No pain Extremities: No leg edema A complete review of systems was performed. Pertinent positives are noted above. All other systems are negative. Vital Signs Last 8 Hrs Date Time Temp Pulse Resp B/P (MAP) Pulse Ox O2 Delivery O2 Flow Rate FiO2 07/11/17 08:13 36.6 60 16 130/82 (98) 95 Room Air Last Recorded Weight Weight (Kilograms): 83.500 Physical Exam General Appearance: no apparent distress Head: normocephalic, atraumatic Eyes: PERRL Neck: no adenopathy Respiratory/Chest: lungs clear Cardiovascular: regular rate, rhythm Abdomen/GI: non tender Extremities/Musculoskelatal: no calf tenderness, no pedal edema Neurologic/Psych: alert, oriented x 3 Family History Cancer Diabetes mellitus Hypertension Kidney disease Kidney stones Seizures Negative for ADPKD / CKD / ESRD. Also negative for Crohn's disease Social History Smokeless Tobacco Use: No Drug Use: none Marital Status: single Occupation: employed Laboratory Results Past 24 Hours 07/11/17 07:22 Red Blood Count 4.33, Mean Corpuscular Volume 91.7, Mean Corpuscular Hemoglobin 29.3, Mean Corpuscular Hemoglobin Concent 32.0, Mean Platelet Volume 11.4, Neutrophils (%) (Auto) 78.0, Lymphocytes (%) (Auto) 13.6, Monocytes (%) (Auto) 8.2, Eosinophils (%) (Auto) 0.0, Basophils (%) (Auto) 0.0, Neutrophils # (Auto) 7.95, Lymphocytes # (Auto) 1.39, Monocytes # (Auto) 0.84, Eosinophils # (Auto) 0.00, Basophils # (Auto) 0.00 07/11/17 07:22 Test 07/11/17 07:22 White Blood Count 10.20 K/uL (4.8-10.8) Red Blood Count 4.33 M/uL (4.7-6.1) Hemoglobin 12.7 g/dL (14.0-18.0) Hematocrit 39.7 % (42-52) Mean Corpuscular Volume 91.7 fL (80-100) Mean Corpuscular Hemoglobin 29.3 pg (25-34) Mean Corpuscular Hemoglobin Concent 32.0 g/dl (32-36) Platelet Count 193 K/uL (130-400) Mean Platelet Volume 11.4 fL (7.4-10.4) Neutrophils (%) (Auto) 78.0 % Lymphocytes (%) (Auto) 13.6 % Monocytes (%) (Auto) 8.2 % Eosinophils (%) (Auto) 0.0 % Basophils (%) (Auto) 0.0 % Neutrophils # (Auto) 7.95 K/uL (1.4-6.5) Lymphocytes # (Auto) 1.39 K/uL (1.2-3.4) Monocytes # (Auto) 0.84 K/uL (0.11-0.59) Eosinophils # (Auto) 0.00 K/uL (0-0.5) Basophils # (Auto) 0.00 K/uL (0-0.2) RDW Standard Deviation 46.5 fL (36.4-46.3) RDW Coefficient of Variation 13.8 % (11.5-14.5) Immature Granulocyte % (Auto) 0.2 % Immature Granulocyte # (Auto) 0.02 K/uL (0.00-0.02) Anion Gap 7.0 mmol/L (3-11) Est Creatinine Clear Calc Drug Dose 148.9 ml/min Estimated GFR () 142.0 Estimated GFR (Non- 122.6 BUN/Creatinine Ratio 30.4 (10-20) Calcium Level 9.6 mg/dl (8.5-10.1) Phosphorus Level 3.8 mg/dl (2.5-4.9) Magnesium Level 2.2 mg/dl (1.8-2.4) Allergies Coded Allergies: No Known Allergies (Unverified , 07/08/17) Medications Current Inpatient Medications Medications (Trade) Dose Ordered Sig/Jay Jay Route Start Time Stop Time Status Last Admin Dose Admin Acetaminophen (Tylenol Tab) 650 mg Q4H PRN PO 07/08/17 13:00 08/07/17 12:59 07/09/17 09:59 650 MG Polyethylene (Miralax Powder Packet) 17 gm DAILY PRN PO 07/08/17 13:00 08/07/17 12:59 Zolpidem Tartrate (Ambien Tab) 5 mg HSZ PRN PO 07/08/17 13:00 08/07/17 12:59 07/10/17 21:20 5 MG Ondansetron HCl (Zofran Inj) 4 mg Q6H PRN IV 07/08/17 13:00 08/07/17 12:59 07/08/17 20:03 4 MG Lactobacillus Acidophilus (Floranex Tab) 1 tab DAILY PO 07/09/17 09:00 08/08/17 08:59 07/10/17 09:33 1 TAB Methylprednisolone Sodium Succinate 20 mg/Syringe 0.32 ml @ 1.5 mls/min BID IV 07/08/17 14:00 08/07/17 13:59 07/10/17 21:20 1.5 MLS/MIN Potassium Chloride/Sodium Chloride 1,000 ml @ 75 mls/hr [id number] IV 07/09/17 12:00 08/08/17 11:59 07/11/17 04:04 75 MLS/HR Ceftriaxone Sodium 1 gm/ Dextrose 50 ml @ 100 mls/hr Q24H IV 07/09/17 12:00 07/19/17 11:59 07/10/17 13:00 100 MLS/HR Pantoprazole Sodium 40 mg/ Syringe 10 ml @ 5 mls/min DAILY@09,21 IV 07/10/17 21:00 08/09/17 20:59 07/10/17 21:20 5 MLS/MIN Impression (1) Kidney cysts (2) Acute kidney injury (3) abd pain with hx of possibel crohn disease (4) Vomiting Recommendations YAO: -- Resolved w/ IV hydration -- Patient continues to have significant NG drainage (1200 cc last 24 hours) and no oral intake. Continue hydration w/ 0.9NS with 20 mEq KCl at 75 cc/hr -- Potassium, Mg and PO4 are all within acceptable limits this am. Continue to monitor PRP KIDNEY CYSTS: -- Renal US 07/08/17: R 10 cm, L 11 cm. Cysts seen within each kidney -- Provided patient with phone number to [employer] . He can call to determine whether genetic testing for PKD is covered by his insurance HYPERCALCEMIA: -- Resolved. This was likely related to OTC Vitamin D therapy. Vitamin D level was mildly low. PTH was within normal limits -- Continue to hold OTC Vitamin D. Monitor serum calcium and albumin -- Serum calcium remains within normal limits this am GI: -- GI recommendations reviewed this am. KUB x-ray 07/10 shows a nonobstructive pattern. Patient remains on IV Hydrocortisone ID: -- Urine culture was negative for growth -- Stool WBC's are negative -- Clostridium difficile toxin assay was negative -- Stool Shiga toxin was negative
[2017-07-11 11:10] VITALS: BP 122/78; TEMP 36.6; O2SAT 95
[2017-07-11] MEDS: CEFTRIAXONE SOD INJ 1 GM in DEXTROSE 5% ADD-VANTAGE 50ML 50 ML IV SCH (12:49)
[2017-07-11 15:00] VITALS: BP 142/90; PULSE 112; TEMP 36.9; O2SAT 96
[2017-07-11] MEDS ORDERED: LAVAGE SOLUTION 4000ML PO SCH (15:45)
--- NOTE | 2017-07-11 18:27 | Progress Note ---
Subjective Date of Service: Jul 11, 2017. Subjective Pt evaluation today including: conversation w/ patient, physical exam, lab review Patient reports feeling well. He contiues to have about 250 liter of dark fluid content removed from NSG, however he does state that he has had a bowel movement today. But these were dark in color like the NSG content. Problem List Medical Problems: (1) Abdominal pain Status: Acute (2) Acute renal insufficiency Status: Acute (3) Enterocolitis Status: Acute (4) Kidney cysts Status: Acute (5) Vomiting Status: Acute Review of Systems Constitutional: + fever, + chills Eyes: + worsening of vision, + eye pain Respiratory: + cough, + sputum Cardiac: + chest pain, + orthopnea Abdomen: + pain, + nausea Musculoskeletal: + joint pain Male : + dysuria, + urinary frequency Neurologic: + memory loss Psychiatric: + anhedonism Heme: + abnormal bleeding/bruising All Other Systems: Reviewed and Negative Medications Current Inpatient Medications Medications (Trade) Dose Ordered Sig/Jay Jay Route Start Time Stop Time Status Last Admin Dose Admin Acetaminophen (Tylenol Tab) 650 mg Q4H PRN PO 07/08/17 13:00 08/07/17 12:59 07/09/17 09:59 650 MG Polyethylene (Miralax Powder Packet) 17 gm DAILY PRN PO 07/08/17 13:00 08/07/17 12:59 Zolpidem Tartrate (Ambien Tab) 5 mg HSZ PRN PO 07/08/17 13:00 08/07/17 12:59 07/10/17 21:20 5 MG Ondansetron HCl (Zofran Inj) 4 mg Q6H PRN IV 07/08/17 13:00 08/07/17 12:59 07/08/17 20:03 4 MG Lactobacillus Acidophilus (Floranex Tab) 1 tab DAILY PO 07/09/17 09:00 08/08/17 08:59 07/11/17 09:45 1 TAB Methylprednisolone Sodium Succinate 20 mg/Syringe 0.32 ml @ 1.5 mls/min BID IV 07/08/17 14:00 08/07/17 13:59 07/11/17 09:45 1.5 MLS/MIN Potassium Chloride/Sodium Chloride 1,000 ml @ 75 mls/hr [id number] IV 07/09/17 12:00 08/08/17 11:59 07/11/17 16:57 75 MLS/HR Ceftriaxone Sodium 1 gm/ Dextrose 50 ml @ 100 mls/hr Q24H IV 07/09/17 12:00 07/19/17 11:59 07/11/17 12:49 100 MLS/HR Pantoprazole Sodium 40 mg/ Syringe 10 ml @ 5 mls/min DAILY@ IV 07/10/17 21:00 08/09/17 20:59 07/11/17 09:45 5 MLS/MIN Polyethylene Glycol/ Electrolytes (Golytely Soln) 1 dose 1545 PO 07/11/17 15:45 07/11/17 23:50 07/11/17 16:56 1 DOSE Objective Vital Signs Date Time Temp Pulse Resp B/P (MAP) Pulse Ox O2 Delivery O2 Flow Rate FiO2 07/11/17 15:00 36.9 112 20 142/90 (107) 96 Room Air 07/11/17 11:10 36.6 12 122/78 (93) 95 Room Air 07/11/17 08:13 36.6 60 16 130/82 (98) 95 Room Air 07/11/17 07:53 Room Air 07/10/17 23:40 36.8 95 16 122/76 (91) 95 Room Air 07/10/17 23:12 Room Air 07/10/17 20:00 Room Air Physical Exam General Appearance: WD/WN, no apparent distress Eyes: normal inspection ENT: normal ENT inspection Neck: supple, no adenopathy, thyroid normal Respiratory/Chest: lungs clear, normal breath sounds Cardiovascular: regular rate, rhythm, no edema, no gallop Abdomen: normal bowel sounds, non tender Extremities: normal range of motion, non-tender Lymphatic: no adenopathy Laboratory Results Last 24 Hours Test 07/11/17 07:22 White Blood Count 10.20 K/uL Red Blood Count 4.33 M/uL Hemoglobin 12.7 g/dL Hematocrit 39.7 % Mean Corpuscular Volume 91.7 fL Mean Corpuscular Hemoglobin 29.3 pg Mean Corpuscular Hemoglobin Concent 32.0 g/dl Platelet Count 193 K/uL Mean Platelet Volume 11.4 fL Neutrophils (%) (Auto) 78.0 % Lymphocytes (%) (Auto) 13.6 % Monocytes (%) (Auto) 8.2 % Eosinophils (%) (Auto) 0.0 % Basophils (%) (Auto) 0.0 % Neutrophils # (Auto) 7.95 K/uL Lymphocytes # (Auto) 1.39 K/uL Monocytes # (Auto) 0.84 K/uL Eosinophils # (Auto) 0.00 K/uL Basophils # (Auto) 0.00 K/uL RDW Standard Deviation 46.5 fL RDW Coefficient of Variation 13.8 % Immature Granulocyte % (Auto) 0.2 % Immature Granulocyte # (Auto) 0.02 K/uL Sodium Level 142 mmol/L Potassium Level 4.2 mmol/L Chloride Level 108 mmol/L Carbon Dioxide Level 27 mmol/L Anion Gap 7.0 mmol/L Blood Urea Nitrogen 26 mg/dl Creatinine 0.84 mg/dl Est Creatinine Clear Calc Drug Dose 148.9 ml/min Estimated GFR () 142.0 Estimated GFR (Non- 122.6 BUN/Creatinine Ratio 30.4 Random Glucose 90 mg/dl Calcium Level 9.6 mg/dl Phosphorus Level 3.8 mg/dl Magnesium Level 2.2 mg/dl Assessment and Plan Abdominal pain secondary to GI obstruction Currently has NG tube with low intermittent suction (40). Abd. pain has significantly improved. Patient had about 4 liters removed via NG tube. GI is on board. Recommends that once NG tube stops removing fluid, to clamp. Patient also had a BM which is also reassuring, however, the fluid was dark, will continue to monitor his labs. Complicated urinary tract infection Currently on day 3 of rocephin. Patient is showing improvement. Polycystic kidney disease with ARF Creatinine improved. will decrease IVF fluids today as noted by nephrology. Continued [facility] stay due to: inadequate po fluid intake (continues to require NG tube) Discharge planning: home
--- NOTE | 2017-07-11 19:31 | GASTROENTEROLOGY PROGRESS NOTE ---
DATE: 07/11/2017 SUBJECTIVE: Mr. Armenta is feeling better with several bowel movements today that are of dark material. His NG tube output has diminished, although it's contents from the last 24 hours is dark brown to nearly black with occasional red coloration. However, he has no nausea, vomiting or abdominal pain. VITAL SIGNS: Today, blood pressure 122/78, afebrile, 36.6, 95% on room air, heart rate 60. LABORATORY STUDIES: Include, white count 10.2, which is down, hemoglobin 12.7 and stable and platelets of 193,000. There were no white blood cells identified on is fecal smear from July 09. C. diff, routine cultures were negative. IMAGING DATA: His x-ray last night showed evidence of a nonobstructing bowel pattern, no evidence of bowel distention and intact nasogastric tube. REVIEW OF SYSTEMS: Otherwise noncontributory based on 13-point exam. PHYSICAL EXAMINATION: GENERAL: The patient is awake, alert and oriented x3. Has an NG tube in place. This is disconnected, although has some brown residual in the tube. HEART: Normal S1, S2. LUNGS: Clear to auscultation. ABDOMEN: Soft, flat, nontender, nondistended with good bowel sounds. EXTREMITIES: Without clubbing, cyanosis or edema. RECTAL: Deferred. IMPRESSION AND PLAN: Patient with initial features of obstruction and a question of transition point in the proximal ascending colon with evidence of active ileitis, and recent colonoscopy. There is also question of dark nasogastric output that may be at times be bloody with coffee grounds. Will plan for a bowel prep if tolerated tonight with upper endoscopy to exclude mucosal disease such as ulcers or active inflammation and a repeat colonoscopy to reassess the colon lining for any transition zone in the right colon as well as reassess the terminal ileum. Dr. Cantu will be performing this tomorrow. We will begin a bowel prep this evening. We can maintain an n.p.o. status. Continue IV PPI. MTDD
[2017-07-11 23:30] VITALS: BP 115/71; PULSE 70; TEMP 36.7; O2SAT 97
[2017-07-12] MEDS: NSS + 20MEQ KCL 1000ML 1,000 ML IV SCH ×2 (05:52→19:52)
[2017-07-12 07:02] VITALS: BP 118/70; PULSE 78; TEMP 36.5; O2SAT 98
[2017-07-12 07:32] LABS: BASO % 0.1 %; BASO ABS # 0.01 K/uL (0-0.2); COMPLETE YES; HEMATOCRIT 39.2 % (42-52); IG% 0.4 %; LYMPH % 18.2 %; LYMPH ABS # 1.52 K/uL (1.2-3.4); MEAN CELL VOLUME 89.7 fL (80-100); MEAN CORPUSCULAR HEMOGLOBIN 29.7 pg (25-34); MEAN CORPUSCULAR HGB CONC 33.2 g/dl (32-36); MEAN PLATELET VOLUME 11.3 fL (7.4-10.4); MONO % 8.3 %; PLATELET COUNT 172 K/uL (130-400); RED BLOOD COUNT 4.37 M/uL (4.7-6.1); WHITE BLOOD COUNT 8.36 K/uL (4.8-10.8)
[2017-07-12 08:05] LABS: BUN/CREATININE RATIO 30.8 (10-20); CALCIUM 9.5 mg/dl (8.5-10.1); CREATININE 0.8 mg/dl (0.60-1.40); POTASSIUM 4.1 mmol/L (3.5-5.1)
[2017-07-12] MEDS: LACTOBACILLUS ACIDOPHILUS (FLORANEX) TAB PO SCH (09:16)
[2017-07-12] MEDS: PANTOprazole INJ 40 MG in SYRINGE 0 ML IV SCH ×2 (09:16→21:05)
[2017-07-12] MEDS: METHYLPREDNISOLONE IV 20 MG in SYRINGE 0 ML IV SCH ×2 (09:16→21:05)
--- NOTE | 2017-07-12 10:03 | Nephrology Progress Note ---
Nephrology Progress Note Date of Service Jul 12, 2017. Chief Complaint Follow up evaluation of YAO, kidney cysts Subjective Mr. Armenta was seen & examined in his hospital room this morning. He is voiding without difficulty. He denies flank discomfort. Mr. Cervantes's NG tube was removed yesterday evening. He remains on IV Hydrocortisone therapy. He is scheduled for EGD and colonoscopy later today. He voices no new medical concerns. Review of Systems Constitutional: No fever Cardiovascular: No chest pain Respiratory: No dyspnea at rest Abdomen: No pain Genitourinary - Male: No dysuria, No gross hematuria Extremities: No leg edema A complete review of systems was performed. Pertinent positives are noted above. All other systems are negative. Vital Signs Last 8 Hrs Date Time Temp Pulse Resp B/P (MAP) Pulse Ox O2 Delivery O2 Flow Rate FiO2 07/12/17 07:46 Room Air 07/12/17 07:02 36.5 78 16 118/70 (86) 98 Room Air Last Recorded Weight Weight (Kilograms): 83.500 Physical Exam General Appearance: no apparent distress Head: normocephalic, atraumatic Eyes: PERRL, EOMI Neck: no adenopathy Respiratory/Chest: lungs clear Cardiovascular: regular rate, rhythm Abdomen/GI: normal bowel sounds, non tender, soft Extremities/Musculoskelatal: no calf tenderness, no pedal edema Neurologic/Psych: alert, oriented x 3 Family History Cancer Diabetes mellitus Hypertension Kidney disease Kidney stones Seizures Negative for ADPKD / CKD / ESRD. Also negative for Crohn's disease Social History Smokeless Tobacco Use: No Drug Use: none Marital Status: single Occupation: employed Laboratory Results Past 24 Hours 07/12/17 07:22 Red Blood Count 4.37, Mean Corpuscular Volume 89.7, Mean Corpuscular Hemoglobin 29.7, Mean Corpuscular Hemoglobin Concent 33.2, Mean Platelet Volume 11.3, Neutrophils (%) (Auto) 73.0, Lymphocytes (%) (Auto) 18.2, Monocytes (%) (Auto) 8.3, Eosinophils (%) (Auto) 0.0, Basophils (%) (Auto) 0.1, Neutrophils # (Auto) 6.11, Lymphocytes # (Auto) 1.52, Monocytes # (Auto) 0.69, Eosinophils # (Auto) 0.00, Basophils # (Auto) 0.01 9/15/17 07:22 Test 07/12/17 07:22 White Blood Count 8.36 K/uL (4.8-10.8) Red Blood Count 4.37 M/uL (4.7-6.1) Hemoglobin 13.0 g/dL (14.0-18.0) Hematocrit 39.2 % (42-52) Mean Corpuscular Volume 89.7 fL (80-100) Mean Corpuscular Hemoglobin 29.7 pg (25-34) Mean Corpuscular Hemoglobin Concent 33.2 g/dl (32-36) Platelet Count 172 K/uL (130-400) Mean Platelet Volume 11.3 fL (7.4-10.4) Neutrophils (%) (Auto) 73.0 % Lymphocytes (%) (Auto) 18.2 % Monocytes (%) (Auto) 8.3 % Eosinophils (%) (Auto) 0.0 % Basophils (%) (Auto) 0.1 % Neutrophils # (Auto) 6.11 K/uL (1.4-6.5) Lymphocytes # (Auto) 1.52 K/uL (1.2-3.4) Monocytes # (Auto) 0.69 K/uL (0.11-0.59) Eosinophils # (Auto) 0.00 K/uL (0-0.5) Basophils # (Auto) 0.01 K/uL (0-0.2) RDW Standard Deviation 44.2 fL (36.4-46.3) RDW Coefficient of Variation 13.4 % (11.5-14.5) Immature Granulocyte % (Auto) 0.4 % Immature Granulocyte # (Auto) 0.03 K/uL (0.00-0.02) Anion Gap 5.0 mmol/L (3-11) Est Creatinine Clear Calc Drug Dose 156.3 ml/min Estimated GFR () 144.9 Estimated GFR (Non- 125.0 BUN/Creatinine Ratio 30.8 (10-20) Calcium Level 9.5 mg/dl (8.5-10.1) Allergies Coded Allergies: No Known Allergies (Unverified , 07/08/17) Medications Current Inpatient Medications Medications (Trade) Dose Ordered Sig/Jay Jay Route Start Time Stop Time Status Last Admin Dose Admin Acetaminophen (Tylenol Tab) 650 mg Q4H PRN PO 9/11/17 13:00 08/07/17 12:59 07/09/17 09:59 650 MG Polyethylene (Miralax Powder Packet) 17 gm DAILY PRN PO 07/08/17 13:00 08/07/17 12:59 Zolpidem Tartrate (Ambien Tab) 5 mg HSZ PRN PO 07/08/17 13:00 08/07/17 12:59 07/10/17 21:20 5 MG Ondansetron HCl (Zofran Inj) 4 mg Q6H PRN IV 07/08/17 13:00 08/07/17 12:59 07/08/17 20:03 4 MG Lactobacillus Acidophilus (Floranex Tab) 1 tab DAILY PO 07/09/17 09:00 08/08/17 08:59 07/12/17 09:16 1 TAB Methylprednisolone Sodium Succinate 20 mg/Syringe 0.32 ml @ 1.5 mls/min BID IV 07/08/17 14:00 08/07/17 13:59 07/12/17 09:16 1.5 MLS/MIN Potassium Chloride/Sodium Chloride 1,000 ml @ 75 mls/hr [id number] IV 07/09/17 12:00 08/08/17 11:59 07/12/17 05:52 75 MLS/HR Ceftriaxone Sodium 1 gm/ Dextrose 50 ml @ 100 mls/hr Q24H IV 07/09/17 12:00 07/19/17 11:59 07/11/17 12:49 100 MLS/HR Pantoprazole Sodium 40 mg/ Syringe 10 ml @ 5 mls/min DAILY@ IV 07/10/17 21:00 08/09/17 20:59 07/12/17 09:16 5 MLS/MIN Impression (1) Kidney cysts (2) Acute kidney injury (3) abd pain with hx of possibel crohn disease (4) Vomiting Recommendations KIDNEY CYSTS: -- YAO resolved. Will heplock IV -- Renal US 07/08/17: R 10 cm, L 11 cm. Cysts seen within each kidney -- Provided patient with phone number to [facility] . He can call to determine whether genetic testing for PKD is covered by his insurance GI: -- Patient has Crohn's ileitis. He remains on IV Hydrocortisone -- Patient is scheduled for EGD and colonoscopy today OTHER: -- No further inpatient Nephrology evaluation indicated at this time. Will sign off. -- In anticipation of hospital discharge I have placed order in [employer] [facility] EMR to have my military source operations officer staff call patient and schedule [facility] [place] in 2 weeks. Orders have also been placed for nonfasting blood work to be completed 24 hours prior to visit.
[2017-07-12] MEDS: CEFTRIAXONE SOD INJ 1 GM in DEXTROSE 5% ADD-VANTAGE 50ML 50 ML IV SCH (11:53)
[2017-07-12] MEDS ORDERED: FENTANYL CITRATE INJ 50 MCG/1 ML 2 ML VIAL ONE (14:51)
[2017-07-12] MEDS ORDERED: PROPOFOL IV EMULSION 10 MG/ML 20 ML VIAL IV ONE ×3 (14:51→15:39)
[2017-07-12] MEDS ORDERED: LIDOCAINE HCL 2% 2 ML VIAL (20MG/ML) ONE (14:51)
--- NOTE | 2017-07-12 15:10 | Endo History and Physical ---
History & Physical Date of Service: Jul 12, 2017. Chief Complaint: bowel obstruction Referring Physician: Dr Cisneros History of Present Illness For EGD and colonoscopy Past Surgical History Hx Cardiac Surgery: No Hx Abdominal Surgery: No Hx Post-Op Nausea and Vomiting: No Hx Cancer Surgery: No Hx Thoracic Surgery: No Hx Orthopedic: No Hx Urinary Tract Surgery: No Social History Smoking Status: Never Smoker Smokeless Tobacco Use: No Hx Substance Use: No Hx Alcohol Use: No Allergies Coded Allergies: No Known Allergies (Unverified , 07/08/17) Current Medications Reported Home Medications Medications Dose Route/Sig Max Daily Dose Days Date Category Prednisone 10 Mg Tab 30 Mg PO DAILY 07/08/17 Reported Vitamin D3 (Cholecalciferol) 1,000 Unit Tab 1 Tab PO DAILY 90 06/16/17 Reported Probiotic (Probiotic Product) 1 Cap Cap 1 Cap DAILY 06/16/17 Reported Mvi With Minerals (Multivitamins/Minerals) Tab 1 Tab PO DAILY 06/16/17 Reported Vital Signs Weight (Kilograms): 83.500 Height (Feet): 6 Height (Inches): 0.00 Date Time Temp Pulse Resp B/P (MAP) Pulse Ox O2 Delivery O2 Flow Rate FiO2 07/12/17 13:58 37.1 68 18 134/74 (94) 97 Room Air 07/12/17 07:46 Room Air 07/12/17 07:02 36.5 78 16 118/70 (86) 98 Room Air 07/11/17 23:30 36.7 70 16 115/71 (86) 97 Room Air 07/11/17 19:15 Room Air Physical Exam General Appearance: WD/WN Respiratory/Chest: Respiratory effort: no dyspnea Cardiovascular: Heart Auscultation: RRR Abdomen: Inspection & Palpation: soft Assessment and Plan Bowel obstruction for EGD and colonoscopy
--- NOTE | 2017-07-12 15:39 | Discharge Instructions ---
Endoscopy Patient Instructions Date / Procedure(s) Performed Jul 12, 2017. Colonoscopy, EGD Allergy Information Coded Allergies: No Known Allergies (Unverified , 07/08/17) Discharge Date / Findings Jul 12, 2017. cardia ulcer, stricture in ascending colon Medication Instructions Restart Stopped Medication(s): resume meds Current Inpatient Medications Medications (Trade) Dose Ordered Sig/Jay Jay Route Start Time Stop Time Status Last Admin Dose Admin Acetaminophen (Tylenol Tab) 650 mg Q4H PRN PO 07/08/17 13:00 08/07/17 12:59 07/09/17 09:59 650 MG Polyethylene (Miralax Powder Packet) 17 gm DAILY PRN PO 07/08/17 13:00 08/07/17 12:59 Zolpidem Tartrate (Ambien Tab) 5 mg HSZ PRN PO 07/08/17 13:00 08/07/17 12:59 07/10/17 21:20 5 MG Ondansetron HCl (Zofran Inj) 4 mg Q6H PRN IV 07/08/17 13:00 08/07/17 12:59 07/08/17 20:03 4 MG Lactobacillus Acidophilus (Floranex Tab) 1 tab DAILY PO 07/09/17 09:00 08/08/17 08:59 07/12/17 09:16 1 TAB Methylprednisolone Sodium Succinate 20 mg/Syringe 0.32 ml @ 1.5 mls/min BID IV 07/08/17 14:00 08/07/17 13:59 07/12/17 09:16 1.5 MLS/MIN Potassium Chloride/Sodium Chloride 1,000 ml @ 75 mls/hr [id number] IV 07/09/17 12:00 08/08/17 11:59 07/12/17 05:52 75 MLS/HR Ceftriaxone Sodium 1 gm/ Dextrose 50 ml @ 100 mls/hr Q24H IV 07/09/17 12:00 07/19/17 11:59 07/12/17 11:53 100 MLS/HR Pantoprazole Sodium 40 mg/ Syringe 10 ml @ 5 mls/min DAILY@ IV 07/10/17 21:00 08/09/17 20:59 07/12/17 09:16 5 MLS/MIN Provider Instructions Activity Restrictions - No exercising or heavy lifting for 24 hours. - Do not drink alcohol the day of the procedure. - Do not drive a car or operate machinery until the day after the procedure. - Do not make any important decisions or sign important papers in 24 hours after the procedure. Following Day: - Return to full activity which may include returning to work/school. Diet Start your diet with liquids and light foods (jello, soup, juice, toast). Then eat your usual diet if not nauseated. Treatment For Common After Affects For mild abdominal pain, bloating, or excessive gas: - Rest - Eat lightly - Lie on right side Follow-Up Information Follow-up with as scheduled Anesthesia Information What You Should Know You have had a procedure that required some medicine to reduce anxiety and discomfort. This treatment is called moderate sedation. After receiving the treatment, you may be sleepy, but you will be able to breathe on your own. The effects of the treatment may last for several hours. Follow these instructions along with Activity/Diet recommendations noted above: * Do NOT do anything where dizziness or clumsiness would be dangerous. * Rest quietly at home today, then you can be up and about tomorrow. * Have a responsible person stay with you the rest of today. * You may have had an I.V. today. If so, you may take the dressing off later today. Recommendations Call your doctor if: * Trouble breathing * Continuous vomiting for more than 24 hours * Temperature above 101 degrees * Severe abdominal pain or bloating * Pain not relieved by pain medicine ordered * There is increased drainage or redness from any incision * A large amount of rectal bleeding greater than 2-3 tablespoons. (If you had a polyp/s removed or have hemorrhoids, a small amount of blood - from the rectum is to be expected.) * You have any unanswered questions or concerns. IN THE EVENT OF A SERIOUS EMERGENCY, GO TO THE NEAREST EMERGENCY ROOM Your discharge instructions were prepared by provider Miguel Cantu. Patient Instructions Signature Page Lenny Armenta Patient (or Guardian) Signature/Date: I have read and understand the instructions given to me by my caregivers. Caregiver/RN/Doctor Signature/Date: The above-named patient and/or guardian has received patient instructions on this date. + Original Patient Signature Page (only) stays with chart. Please make copy for patient.
--- NOTE | 2017-07-12 15:43 | GI REPORT ---
Procedure Date: 07/12/2017 2:29 PM Procedure: Upper GI endoscopy Indications: Epigastric abdominal pain Medicines: Fentanyl 100 micrograms IV, Propofol total dose 550 mg IV Complications: No immediate complications. Estimated Blood Loss: Estimated blood loss: none. Procedure: Pre-Anesthesia Assessment: - Prior to the procedure, a History and Physical was performed, and patient medications, allergies and sensitivities were reviewed. The patient's tolerance of previous anesthesia was reviewed. - The risks and benefits of the procedure and the sedation options and risks were discussed with the patient. All questions were answered and informed consent was obtained. After obtaining informed consent, the endoscope was passed under direct vision. Throughout the procedure, the patient's blood pressure, pulse, and oxygen saturations were monitored continuously. The scope was introduced through the mouth, and advanced to the second part of duodenum. The upper GI endoscopy was accomplished without difficulty. The patient tolerated the procedure well. Findings: The examined esophagus was normal. One non-bleeding superficial gastric ulcer with no stigmata of bleeding was found in the cardia. The lesion was 8 mm in largest dimension. The examined duodenum was normal. Impression: - Normal esophagus. - Non-bleeding gastric ulcer with no stigmata of bleeding. - Normal examined duodenum. - No specimens collected. Recommendation: - Return patient to [facility] for ongoing care. Miguel Cantu M.D. Miguel Cantu MD 07/12/2017 3:42:35 PM This report has been signed electronically. Note Initiated On: 07/12/2017 2:29 PM I attest to the content of the Intraoperative Record and orders documented therein, exceptions below
--- NOTE | 2017-07-12 15:45 | GI REPORT ---
Procedure Date: 07/12/2017 2:30 PM Procedure: Colonoscopy Indications: Generalized abdominal pain, Abnormal CT of the GI tract Medicines: Fentanyl 100 micrograms IV, Propofol total dose 550 mg IV Complications: No immediate complications. Estimated Blood Loss: Estimated blood loss was minimal. Procedure: Pre-Anesthesia Assessment: - Prior to the procedure, a History and Physical was performed, and patient medications, allergies and sensitivities were reviewed. The patient's tolerance of previous anesthesia was reviewed. - The risks and benefits of the procedure and the sedation options and risks were discussed with the patient. All questions were answered and informed consent was obtained. After I obtained informed consent, the scope was passed under direct vision. Throughout the procedure, the patient's blood pressure, pulse, and oxygen saturations were monitored continuously. The scope was introduced through the anus and advanced to the ascending colon. The colonoscopy was performed without difficulty. The patient tolerated the procedure well. The quality of the bowel preparation was good. Findings: A benign-appearing, intrinsic severe stenosis was found in the proximal ascending colon and was non-traversed. Biopsies were taken with a cold forceps for histology. Estimated blood loss was minimal. Impression: - Stricture in the proximal ascending colon. Biopsied. Recommendation: - Return patient to [facility] for ongoing care. Miguel Cantu M.D. Miguel Cantu MD 07/12/2017 3:45:31 PM This report has been signed electronically. Note Initiated On: 07/12/2017 2:30 PM I attest to the content of the Intraoperative Record and orders documented therein, exceptions below
--- NOTE | 2017-07-12 15:49 | Anesthesiology Progress Note ---
Anesthesia Post Op Note Date & Time Jul 12, 2017 at 15:49 Vital Signs Pain Intensity: 0.0 Vital Signs Past 12 Hours Date Time Temp Pulse Resp B/P (MAP) Pulse Ox O2 Delivery O2 Flow Rate FiO2 07/12/17 13:58 37.1 68 18 134/74 (94) 97 Room Air 07/12/17 07:46 Room Air 07/12/17 07:02 36.5 78 16 118/70 (86) 98 Room Air Notes Mental Status: alert / awake / arousable, participated in evaluation Pt Amnestic to Procedure: Yes Nausea / Vomiting: adequately controlled Pain: adequately controlled Airway Patency, RR, SpO2: stable & adequate BP & HR: stable & adequate Hydration State: stable & adequate Anesthetic Complications: no major complications apparent
[2017-07-12 16:28] VITALS: BP 122/87; PULSE 61; TEMP 36.7; O2SAT 97
--- NOTE | 2017-07-12 16:28 | PROGRESS NOTE ---
DATE: 07/12/2017 HISTORY OF PRESENT ILLNESS: The patient presented in the endoscopy center this afternoon for EGD and colonoscopy. His EGD showed a little bit of a nasogastric tube irritation in the cardia of the stomach, but was otherwise negative. Colonoscopy was significant for a stricturing lesion in the proximal ascending colon which was not there approximately a month ago, at least it was not evident. The lesion is significantly stenotic enough that the scope could not pass through the area. Biopsies were performed. IMPRESSION: The patient has partial obstruction of his colon and the proximal ascending area. This is probably from Crohn's disease. My concern is that this is obviously very aggressive and this is occurring despite taking steroids. I think that it is probably not going to get any better with medical therapy and I think surgery is probably indicated not only to relieve the obstruction, but also for diagnostic purposes as such I will consult general surgery to see the patient for surgical opinion.
[2017-07-12 21:55] VITALS: BP 118/76; PULSE 68; TEMP 36.8; O2SAT 95
--- NOTE | 2017-07-12 22:22 | Progress Note ---
Subjective Date of Service: Jul 12, 2017. Subjective Patient reports feeling well today. Patient has no complaints today. Problem List Medical Problems: (1) Abdominal pain Status: Acute (2) Acute renal insufficiency Status: Acute (3) Enterocolitis Status: Acute (4) Kidney cysts Status: Acute (5) Vomiting Status: Acute Review of Systems Constitutional: + see HPI All Other Systems: Reviewed and Negative Objective Vital Signs Date Time Temp Pulse Resp B/P (MAP) Pulse Ox O2 Delivery O2 Flow Rate FiO2 07/12/17 17:00 Room Air 07/12/17 16:28 36.7 61 18 122/87 (99) 97 Room Air 07/12/17 16:14 68 16 126/72 (90) 99 Room Air 07/12/17 15:59 73 16 116/75 (89) 97 Room Air 07/12/17 15:44 85 16 102/56 (71) 100 Room Air 07/12/17 13:58 37.1 68 18 134/74 (94) 97 Room Air 07/12/17 07:46 Room Air 07/12/17 07:02 36.5 78 16 118/70 (86) 98 Room Air 07/11/17 23:30 36.7 70 16 115/71 (86) 97 Room Air 07/11/17 19:15 Room Air Physical Exam General Appearance: WD/WN, no apparent distress Neck: supple, no adenopathy Respiratory/Chest: chest non-tender, lungs clear Cardiovascular: regular rate, rhythm, no edema, no gallop Abdomen: normal bowel sounds, non tender, soft Skin: normal color Laboratory Results Last 24 Hours Test 07/12/17 07:22 White Blood Count 8.36 K/uL Red Blood Count 4.37 M/uL Hemoglobin 13.0 g/dL Hematocrit 39.2 % Mean Corpuscular Volume 89.7 fL Mean Corpuscular Hemoglobin 29.7 pg Mean Corpuscular Hemoglobin Concent 33.2 g/dl Platelet Count 172 K/uL Mean Platelet Volume 11.3 fL Neutrophils (%) (Auto) 73.0 % Lymphocytes (%) (Auto) 18.2 % Monocytes (%) (Auto) 8.3 % Eosinophils (%) (Auto) 0.0 % Basophils (%) (Auto) 0.1 % Neutrophils # (Auto) 6.11 K/uL Lymphocytes # (Auto) 1.52 K/uL Monocytes # (Auto) 0.69 K/uL Eosinophils # (Auto) 0.00 K/uL Basophils # (Auto) 0.01 K/uL RDW Standard Deviation 44.2 fL RDW Coefficient of Variation 13.4 % Immature Granulocyte % (Auto) 0.4 % Immature Granulocyte # (Auto) 0.03 K/uL Sodium Level 140 mmol/L Potassium Level 4.1 mmol/L Chloride Level 107 mmol/L Carbon Dioxide Level 28 mmol/L Anion Gap 5.0 mmol/L Blood Urea Nitrogen 25 mg/dl Creatinine 0.80 mg/dl Est Creatinine Clear Calc Drug Dose 156.3 ml/min Estimated GFR () 144.9 Estimated GFR (Non- 125.0 BUN/Creatinine Ratio 30.8 Random Glucose 93 mg/dl Calcium Level 9.5 mg/dl Assessment and Plan Abdominal pain secondary to GI obstruction No longer on NG tube. Patient was told by gastro that he would need surgery given the severity of his condition. Parents of patient would like to go to [place] for a second opinion as they are not convinced that patient requires bowel resection.. patient agrees with this as well. Informed gastro zoning technician, and is aware of this. I appreciate gastro input. Patient will be transferred tomorrow. Continued [facility] stay due to: inadequate po fluid intake (continues to require NG tube) Discharge planning: home, acute transfer
[2017-07-12 22:57] VITALS: BP 120/71; PULSE 63; TEMP 36.8; O2SAT 99
[2017-07-13 07:04] VITALS: BP 116/65; PULSE 61; TEMP 36.7; O2SAT 97
[2017-07-13 08:02] LABS: BUN/CREATININE RATIO 23.4 (10-20); CALCIUM 8.7 mg/dl (8.5-10.1); CREATININE 0.84 mg/dl (0.60-1.40)
[2017-07-13] MEDS: NSS + 20MEQ KCL 1000ML 1,000 ML IV SCH (09:03)
[2017-07-13] MEDS: PANTOprazole INJ 40 MG in SYRINGE 0 ML IV SCH (09:04)
[2017-07-13] MEDS: METHYLPREDNISOLONE IV 20 MG in SYRINGE 0 ML IV SCH (09:04)
[2017-07-13] MEDS: LACTOBACILLUS ACIDOPHILUS (FLORANEX) TAB PO SCH (09:04)
--- NOTE | 2017-07-13 10:22 | Discharge Summary ---
Discharge Summary Date of Service Jul 13, 2017. Discharge Summary Admission Date: Jul 08, 2017 at 12:54 Discharge Date: Jul 13, 2017 Discharge Disposition: Home Principal Diagnosis: Stricture in the proximal ascending colon casing obstruction Problems/Secondary Diagnoses: Ileitis, YAO Procedures: GI REPORT [place] Patient: MARIAH HENNESSY Admit Date: 07/08/1709/11/17 [facility] Rec: [id number] Att Phy: Oli Bustamante M.D. Acct ID: [id number] Stephanie Phy: Maryt Gonzalez D.O. Date: 1995 Ref Phy: Self, Referred Fam Phy: Miguel Cantu M.D. Age: 22 Location: [facility] Sex: M Room/Bed: N378-2 MNE:PROVATION REPORT #: [id number] CC: Miguel Cantu M.D. Endcc: DICTATED BY: Miguel Cantu M.D. Procedure Date: 07/12/2017 2:30 PM Procedure: Colonoscopy Indications: Generalized abdominal pain, Abnormal CT of the GI tract Medicines: Fentanyl 100 micrograms IV, Propofol total dose 550 mg IV Complications: No immediate complications. Estimated Blood Loss: Estimated blood loss was minimal. Procedure: Pre-Anesthesia Assessment: - Prior to the procedure, a History and Physical was performed, and patient medications, allergies and sensitivities were reviewed. The patient's tolerance of previous anesthesia was reviewed. - The risks and benefits of the procedure and the sedation options and risks were discussed with the patient. All questions were answered and informed consent was obtained. After I obtained informed consent, the scope was passed under direct vision. Throughout the procedure, the patient's blood pressure, pulse, and oxygen saturations were monitored continuously. The scope was introduced through the anus and advanced to the ascending colon. The colonoscopy was performed without difficulty. The patient tolerated the procedure well. The quality of the bowel preparation was good. Findings: A benign-appearing, intrinsic severe stenosis was found in the proximal ascending colon and was non-traversed. Biopsies were taken with a cold forceps for histology. Estimated blood loss was minimal. Impression: - Stricture in the proximal ascending colon. Biopsied. Recommendation: - Return patient to [facility] for ongoing care. Miguel Jerrica Danielson MD 07/12/2017 3:45:31 PM This report has been signed electronically. Note Initiated On: 07/12/2017 2:30 PM I attest to the content of the Intraoperative Record and orders documented therein, exceptions below Dictated: 07/12/17 1430 Signed: 07/12/17 1545 Patient: MARIAH HENNESSY Admit Date: 07/08/1709/11/17 Med Rec: [id number] Acct ID: [id number] [~ rep ct labl] Page 2of 2 p: [~ rep prt dt last] [~ rep prt tm last] [~ rep ct labl] Page 1of 1 p: [~ rep prt dt last] [~ rep prt tm last] GI REPORT [place] Patient: MARIAH HENNESSY Admit Date: 07/08/1709/11/17 Med Rec: [id number] Att Phy: Oli Bustamante M.D. Acct ID: [id number] Stephanie Phy: Marty Gonzalez D.O. Date: 1995 Ref Phy: Self, Referred Fam Phy: Miguel Cantu M.D. Age: 22 Location: [facility] Sex: Room/Bed: [facility] MNE:PROVATION REPORT #: [id number] CC: Miguel Cantu M.D. Endcc: DICTATED BY: Miguel Cantu M.D. Procedure Date: 07/12/2017 2:29 PM Procedure: Upper GI endoscopy Indications: Epigastric abdominal pain Medicines: Fentanyl 100 micrograms IV, Propofol total dose 550 mg IV Complications: No immediate complications. Estimated Blood Loss: Estimated blood loss: none. Procedure: Pre-Anesthesia Assessment: - Prior to the procedure, a History and Physical was performed, and patient medications, allergies and sensitivities were reviewed. The patient's tolerance of previous anesthesia was reviewed. - The risks and benefits of the procedure and the sedation options and risks were discussed with the patient. All questions were answered and informed consent was obtained. After obtaining informed consent, the endoscope was passed under direct vision. Throughout the procedure, the patient's blood pressure, pulse, and oxygen saturations were monitored continuously. The scope was introduced through the mouth, and advanced to the second part of duodenum. The upper GI endoscopy was accomplished without difficulty. The patient tolerated the procedure well. Findings: The examined esophagus was normal. One non-bleeding superficial gastric ulcer with no stigmata of bleeding was found in the cardia. The lesion was 8 mm in largest dimension. The examined duodenum was normal. Impression: - Normal esophagus. - Non-bleeding gastric ulcer with no stigmata of bleeding. - Normal examined duodenum. - No specimens collected. Recommendation: - Return patient to [facility] for ongoing care. Miguel Cantu M.D. Miguel Cantu MD 07/12/2017 3:42:35 PM This report has been signed electronically. Note Initiated On: 07/12/2017 2:29 PM I attest to the content of the Intraoperative Record and orders documented therein, exceptions below Dictated: 07/12/17 1429 Signed: 07/12/17 1542 The status of this report is Signed. Draft = Not yet reviewed or approved by Medical Physician. Signed = Reviewed and approved by Medical Physician. <ConsultingPhyMNE>f pt consult dr velasquez</ConsultingPhyMNE> <FamilyPhyMNE>f pt fam dr velasquez</FamilyPhyMNE> <OtherPhyMNE>f pt other dr velasquez</OtherPhyMNE> < PrimaryPhyMNE>f pt prim care dr velasquez</PrimaryPhyMNE> <ReferringPhyMNE>f pt referring dr velasquez</ReferringPhyMNE> Medication Reconciliation Changed Medications: Prednisone (Prednisone) 10 Mg Tab 40 MG PO DAILY for 30 Days, #120 TAB 0 Refills (Changed from: 30 MG; Refills: ) Continued Medications: Cholecalciferol (Vitamin D3) 1,000 Unit Tab 1 TAB PO DAILY for 90 Days, #90 TAB 3 Refills Multivitamins/Minerals (Mvi With Minerals) Tab 1 TAB PO DAILY, TAB Probiotic Product (Probiotic) 1 Cap Cap 1 CAP DAILY Discharge Exam Review of Systems: Constitutional: No fever, No chills ENT: No hearing loss, No unusual epistaxis Respiratory: No cough, No sputum Cardiovascular: No chest pain, No orthopnea Abdomen: No pain, No nausea Musculoskeletal: No joint pain, No muscle pain Neurologic: No memory loss, No paralysis Endocrine: No fatigue Hematologic / Lymphatic: No abnormal bleeding/bruising, No clotting problems Integumentary: No rash Physical Exam: General Appearance: WD/WN, no apparent distress Eyes: normal inspection Neck: supple, no adenopathy, thyroid normal Respiratory/Chest: chest non-tender, lungs clear Cardiovascular: regular rate, rhythm, no edema, no gallop Abdomen / GI: normal bowel sounds, non tender, soft Extremities: normal inspection, no calf tenderness Skin: normal color, warm/dry Lymphatic: no adenopathy Hospital Course HPI: The patient is a 22-year-old white male with recently found possible Crohn disease, coming into the hospital Emergency Room with the above chief complaint. This medical information was per patient report and information in the computer. The patient was seen in this hospital Emergency Room on 06/16/2017 because of vomiting, abdominal pain and dehydration. He reported has this problem for recent 2 months. Conditions have been getting worse. In the previous Emergency Room visit, he was advised by the ED physician after they talked to the GI specialist. He had abdominal CT studies, found wall thickening in the distal small bowel. There was no obstruction. There was kidney infiltration with numerous cysts. The patient was released to home from the Emergency Room in previous visit, was on prednisone. The patient has been seen by GI specialist, had a colonoscopy done and was seen by GI physicians, had recommendation about tapering dose of oral prednisone, he currently is on 30 mg p.o. daily. The patient reported abdominal cramping, pain, nausea, vomiting have been getting worse in recent 2-3 days; and was having 10 times vomiting yesterday, today had several times in the morning. However, no any vomiting after arriving to the Emergency Room. He was found to have tachycardia, heart rate up to 137. He got IV fluid in the Emergency Room. When I saw him, he was awake, alert and orientated, confirming the above informations. Reported was having several times maroon stools. Currently, mild nauseation, no vomiting. No fever and chills. Having cramping abdominal pain comes and goes. He got 1 dose of morphine, 1 dose of Zofran and got IV fluid at 500 mL bolus. During his hospital stay patient was placed on NG tube for his GI obstruction. Once obstruction and pain subsided on day 5, diet was initiated. Patient tolerated this and had regular bowel movements GI specialist recommended patient to be transferred to [place] for possible surgery as he failed steroid treatment and was found to have a SEVERE Stricture in the proximal ascending colon FROM A COLONOSCOPY on the . Parents of patient would like to go to [place] for a second opinion as they are not convinced that patient requires bowel resection. Patient agrees with this as well. Informed gastro telephone switchboard operator, and is aware of this. When informed Gastro team in [place]. It was deemed that his acute process has subsided and patient was well enough for discharge. However, he will need a f/u with the GI specialist in [place]. Dr. Barahona who also works in [place] will be able to see patient in [place] on Saturday in his office. Again, we are unsure if patient has Crohn as the biopsies are pending but will be available on Saturday. During the hospital stay, patient was also treated for a UTI (abnormal UA, negative cultures) and YAO which both were treated and resolved. Patient will f/u with Nephrology in 2 weeks as an outpatient. Total Time Spent: Greater than 30 minutes This includes examination of the patient, discharge planning, medication reconciliation, and communication with other providers. Discharge Instructions Please refer to the electronic Patient Visit Report (Discharge Instructions) for additional information. Follow-Up F/U with Dr. Barahona' office in [place] on Saturday.
[2017-07-13] MEDS ORDERED: PRD10 PO (10:29)
--- NOTE | 2017-07-13 10:34 | Discharge Instructions ---
Discharge Instructions Date of Service Jul 13, 2017. Admission Reason for Admission: Abdominal Pain With Hx Of Possible Crohns Disease Discharge Discharge Diagnosis / Problem: Ascending colon obstruction secondary to stricture. Likely crohns Discharge Goals Goal(s): Decrease discomfort, Improve function, Increase independence Activity Recommendations Activity Limitations: resume your previous activity . Instructions / Follow-Up Instructions / Follow-Up F/U with Dr. Fischer for large bowel obtruction caused by stricture in ascending colon. Awaiting colonoscopy results. Current Hospital Diet Patient's current hospital diet: Clear Liquid Diet Discharge Diet Recommended Diet: Clear Liquid Diet Procedures Procedures Performed: BX Pending Studies Studies pending at discharge: yes List of pending studies: Biopsy results from colonscopy Laboratory Results Test 06/16/17 19:15 06/16/17 21:00 07/08/17 09:25 07/08/17 09:30 Total Bilirubin 0.9 1.8 H Direct Bilirubin 0.2 0.3 H Aspartate Amino Transferase (AST) 14 L 13 L Alanine Aminotransferase (ALT) 23 32 Alkaline Phosphatase 52 61 Total Protein 8.4 H 8.8 H Albumin 4.5 4.6 Lipase 109 82 Urine Color DK YELLOW KISHA Urine Appearance CLOUDY CLOUDY Urine pH 6.0 5.5 Urine Specific [place] 1.038 H 1.037 H Urine Protein 1+ 2+ Urine Glucose (UA) NEG NEG Urine Ketones 3+ H 1+ H Urine Occult Blood TRACE H 1+ H Urine Nitrite NEG POS H Urine Bilirubin NEG NEG Urine Urobilinogen NEG NEG Urine Leukocyte Esterase TRACE H TRACE H Urine WBC (Auto) 1-5 1-5 Urine RBC (Auto) 5-10 H 5-10 H Urine Hyaline Casts (Auto) 10-30 H 1-5 Urine Epithelial Cells (Auto) 10-20 H 10-20 H Urine Bacteria (Auto) NEG 2+ H Stool Ova & Parasites SEE NOTE Stool Ova & Parasite Source OTHER-STOOL Stool Parasite Trichrome Stain SEE NOTE Stool Comments Urine Crystals CALCIUM OXALATE H Urine Pathogenic Casts Urine Mucus PRESENT H Test 07/08/17 17:17 07/08/17 21:00 07/09/17 00:09 07/09/17 06:05 25-Hydroxy Vitamin D Total 20.1 L Parathyroid Hormone (Intact) 51.1 Urine Color DK YELLOW Urine Appearance CLEAR Urine pH 7.0 Urine Specific [place] 1.032 H Urine Protein 1+ Urine Glucose (UA) NEG Urine Ketones 1+ H Urine Occult Blood NEG Urine Nitrite NEG Urine Bilirubin NEG Urine Urobilinogen NEG Urine Leukocyte Esterase NEG Urine WBC (Auto) 1-5 Urine RBC (Auto) 0-4 Urine Hyaline Casts (Auto) 1-5 Urine Epithelial Cells (Auto) 10-20 H Urine Bacteria (Auto) NEG Urine Random Creatinine 270.0 Urine Random Total Protein 49.1 H Urine Protein/Creatinine Ratio 0.2 Stool Occult Blood POSITIVE H Phosphorus Level 2.8 Magnesium Level 2.2 Test 07/10/17 07:02 07/11/17 07:22 07/12/17 07:22 07/13/17 06:49 White Blood Count 11.37 H 10.20 8.36 Red Blood Count 4.23 L 4.33 L 4.37 L Hemoglobin 12.4 L 12.7 L 13.0 L Hematocrit 38.7 L 39.7 L 39.2 L Mean Corpuscular Volume 91.5 91.7 89.7 Mean Corpuscular Hemoglobin 29.3 29.3 29.7 Mean Corpuscular Hemoglobin Concent 32.0 32.0 33.2 Platelet Count 182 193 172 Mean Platelet Volume 11.6 H 11.4 H 11.3 H Neutrophils (%) (Auto) 79.6 78.0 73.0 Lymphocytes (%) (Auto) 11.8 13.6 18.2 Monocytes (%) (Auto) 8.2 8.2 8.3 Eosinophils (%) (Auto) 0.0 0.0 0.0 Basophils (%) (Auto) 0.1 0.0 0.1 Neutrophils # (Auto) 9.06 H 7.95 H 6.11 Lymphocytes # (Auto) 1.34 1.39 1.52 Monocytes # (Auto) 0.93 H 0.84 H 0.69 H Eosinophils # (Auto) 0.00 0.00 0.00 Basophils # (Auto) 0.01 0.00 0.01 RDW Standard Deviation 47.8 H 46.5 H 44.2 RDW Coefficient of Variation 14.3 13.8 13.4 Immature Granulocyte % (Auto) 0.3 0.2 0.4 Immature Granulocyte # (Auto) 0.03 H 0.02 0.03 H Sodium Level 142 140 142 Potassium Level 4.2 4.1 4.0 Chloride Level 108 H 107 108 H Carbon Dioxide Level 27 28 28 Anion Gap 7.0 5.0 6.0 Blood Urea Nitrogen 26 H 25 H 20 H Creatinine 0.84 0.80 0.84 Est Creatinine Clear Calc Drug Dose 148.9 156.3 148.8 Estimated GFR () 142.0 144.9 142.0 Estimated GFR (Non- 122.6 125.0 122.6 BUN/Creatinine Ratio 30.4 H 30.8 H 23.4 H Random Glucose 90 93 92 Calcium Level 9.6 9.5 8.7 Phosphorus Level 3.8 Magnesium Level 2.2 Medical Emergencies . Who to Call and When: Medical Emergencies: If at any time you feel your situation is an emergency, please call 911 immediately. . Non-Emergent Contact Non-Emergency issues call your: Specialist (Dr. Fischer) Call Non-Emergent contact if: temperature is above 101, your pain is worsening . . "Provider Documentation" section prepared by Oli Bustamante. . VTE Core Measure Inpt VTE Proph given/why not?: SCD's
[2017-07-13 10:59] VITALS: BP 116/65; PULSE 61; TEMP 36.7; O2SAT 97
--- NOTE | 2017-07-19 17:18 | EDITING REQUIRED CODING QUERY ---
SEPSIS Dear Dr. Bustamante, To promote full compliance with coding requirements relating to patient care, physician participation is requested in all cases of general road supervisor uncertainty. Please assist us with the question(s) below: In responding to this query, please exercise your independent professional judgement. The fact that a question is asked does not imply that any particular answer is desired or expected. We appreciate your clarification on this issue. Sepsis is documented within the medical record but not on the discharge summary. Does the patient have? ( )Bacteremia (Nonspecific laboratory finding of bacteria in the blood) Specify Organism () Present on Admission () Not present on admission () Unable to clinically determine ( ) Septicemia (Systemic disease associated with the presence of pathogenic microorganisms in the blood): Specify Organism () Present on Admission () Not present on admission () Unable to clinically determine ( ) Sepsis Specify Organism Specify Associated Condition/Diagnosis () Present on Admission () Not present on admission () Unable to clinically determine ( ) Severe Sepsis (Sepsis associated with acute organ dysfunction) Specify Organism Specify Associated Condition/Diagnosis () Present on Admission () Not present on admission () Unable to clinically determine ( ) Septic Shock (Severe sepsis with acute circulatory failure, unexplained by other causes) () Present on Admission () Not present on admission () Unable to clinically determine ( ) Other, patient has: (x ) Sepsis was ruled out Thank you for your time. Alba Villareal, HOME HEALTH CARE RESPIRATORY THERAPIST
--- NOTE | 2017-07-19 17:24 | EDITING REQUIRED CODING QUERY ---
CODING QUERY Dear Dr. Bustamante, To promote full compliance with coding requirements relating to patient care, provider participation is requested in all cases of garbage depot worker uncertainty. Please assist us with the question(s) below: 1. UTI is documented within the medical record but not on the discharge summary. 2. Crohn's Ileitis is documented with the medical record but not on the discharge summary. Coding Question(s): Does the patient have? UTI? Crohn's Ileitis ( ) Urinary Tract Infection - type of organism if known_gram postivie cocci (x ) Present on admission ( ) Not present on admission ( ) Unable to determine ( ) Crohn's Ileitis ( ) Present on admission ( ) Not present on admission ( x) Unable to determine Patient does have ileitis, but unsure if he has crohns. Biopsies were pending. Physician's Response(s): Thank you for your time. Alba Villareal [facility] Principal Diagnosis: "_that condition established after study, to be chiefly responsible for occasioning the admission of the patient to the hospital for care." Co-Existing Principal Diagnosis: "_when two or more diagnoses equally meet the criteria for principal diagnosis as determined by the circumstances of admission, diagnostic work up, and/or therapy provided, and the Alphabetic Index, Tabular List, or another coding guideline does not provide sequencing direction, any one of the diagnoses may be sequenced first." "When the physician has documented what appears to be a current diagnosis in the body of the record, but has not included the diagnosis in the final diagnostic statement, the physician should be asked whether the diagnosis should be added." (Source Coding [facility] 2 QTR90. p3-4)
== END 2017-07-13 11:33 | disposition short-term general hospital (02) | DRG 389 ==
LOC: C.EDB 08:43 → C.MSN 12:54 → ENRESERV 13:12
PROVIDERS: ADMIT Hospitalist; ATTEND Hospitalist
PROC: 0DBK8ZX Excision of Ascending Colon, Via Natural or Artificial Opening Endoscopic, Diagnostic (ICD-10-PCS; principal; 2017-07-12 13:49)
PROC: 0DJ08ZZ Inspection of Upper Intestinal Tract, Via Natural or Artificial Opening Endoscopic (ICD-10-PCS; 2017-07-12 13:49)
DX: K56.69 Other intestinal obstruction (principal); Q61.3 Polycystic kidney, unspecified; N39.0 Urinary tract infection, site not specified; N17.9 Acute kidney failure, unspecified; E83.52 Hypercalcemia; T38.0X5A Adverse effect of glucocorticoids and synthetic analogues, initial encounter; R11.10 Vomiting, unspecified; K25.9 Gastric ulcer, unspecified as acute or chronic, without hemorrhage or perforation; Z79.52 Long term (current) use of systemic steroids; Z79.899 Other long term (current) drug therapy

== ENCOUNTER → 2017-08-01 | Outpatient (CLI) | payer BC ==
[~2017-08-01] MED LIST changes: -CALC625T13 PO; -ONDA4TAB10 SL; +PRD10 PO
[2017-08-01 14:46] LABS: HEMATOCRIT 36.2 % (42-52); MEAN CELL VOLUME 89.2 fL (80-100); MEAN CORPUSCULAR HEMOGLOBIN 28.3 pg (25-34); MEAN CORPUSCULAR HGB CONC 31.8 g/dl (32-36); MEAN PLATELET VOLUME 10.8 fL (7.4-10.4); PLATELET COUNT 263 K/uL (130-400); RED BLOOD COUNT 4.06 M/uL (4.7-6.1); WHITE BLOOD COUNT 5.88 K/uL (4.8-10.8)
[2017-08-01 14:49] LABS: URINE APPEARANCE CLEAR (CLEAR); URINE BILIRUBIN NEG (NEG); URINE COLOR YELLOW; URINE EPITHELIAL CELL AUTO 0-5 /lpf (0-5); URINE NITRITE NEG (NEG); URINE PH 5.5 (4.5-7.5); URINE SPECIFIC GRAVITY 1.015 (1.000-1.030); UROBILINOGEN NEG (NEG)
[2017-08-01 14:53] LABS: MANUAL MICROSCOPIC REQUIRED? NO; REVIEW REQ? NO
[2017-08-01 15:18] LABS: BLOOD UREA NITROGEN 13 mg/dl (7-18); BUN/CREATININE RATIO 14.7 (10-20); CALCIUM 9.2 mg/dl (8.5-10.1); CARBON DIOXIDE 26 mmol/L (21-32); CHLORIDE 107 mmol/L (98-107); CREATININE 0.91 mg/dl (0.60-1.40); GLUCOSE 82 mg/dl (70-99); PHOSPHORUS 3.3 mg/dl (2.5-4.9); POTASSIUM 4.1 mmol/L (3.5-5.1); SODIUM 140 mmol/L (136-145)
[2017-08-01 15:22] LABS: URINE PROTIEN/CREAT RATIO 0.1 (0-0.2); URINE TOTAL PROTEIN 5.6 mg/dl (0-11.9)
== END | disposition home or self-care (01) ==
LOC: C.LAB1850 13:50
PROVIDERS: ATTEND Internal Medicine Nephrology
DX: N28.1 Cyst of kidney, acquired (principal)

== ENCOUNTER 2017-08-12 06:31 | Day surgery (SDC) | payer BC ==
[~2017-08-12] VITALS: Ht 182.9 cm; Wt 82.0 kg
[~2017-08-12 06:31] MED LIST changes: +CEFAZOLIN 1000MG/55 ML D5W IV SCH; +CEFAZOLIN 2000 MG/60 ML D5W IV SCH; +SODIUM CHLORIDE 0.9% 1000ML 1,000 ML IV SCH
[2017-08-12] MEDS ORDERED: TRAM-10 PO ×2 (06:53→09:27)
[2017-08-12] MEDS ORDERED: ENOX40IN SQ (06:54)
[2017-08-12 06:59] VITALS: BP 110/73; PULSE 88; TEMP 36.9; O2SAT 99; Ht 182.9 cm; Wt 82.0 kg
[2017-08-12 07:37] VITALS: BP 110/73; PULSE 88; TEMP 36.9; O2SAT 99
[2017-08-12] MEDS ORDERED: MIDAZOLAM HCL 1 MG/ML 2ML VIAL ONE ×2 (07:49→09:00)
[2017-08-12] MEDS ORDERED: FENTANYL CITRATE INJ 50 MCG/1 ML 2 ML VIAL ONE (07:49)
[2017-08-12] MEDS ORDERED: LIDOCAINE HCL 1% 20 ML VIAL ONE (07:50)
[2017-08-12] MEDS ORDERED: BUPIVACAINE/EPINEPHRINE 0.5% MPF 1:200,000 30 ML VIAL ONE (07:55)
--- NOTE | 2017-08-12 08:07 | History and Physical ---
History & Physical Date Aug 12, 2017. Chief Complaint Colorectal Carcinoma History of Present Illness The patient is a 22 year old male who has a colorectal cancer in need of an access for chemotherapy. An infusaport was recommended. Vitals Vital Signs Past 12 Hours Date Time Temp Pulse Resp B/P (MAP) Pulse Ox O2 Delivery O2 Flow Rate FiO2 08/12/17 07:37 36.9 88 20 110/73 99 Room Air 08/12/17 06:59 36.9 88 20 110/73 (85) 99 Room Air Allergies Coded Allergies: No Known Allergies (Unverified , 08/12/17) Home Medications Scheduled Enoxaparin (Lovenox), 40 MG SQ DAILY Multivitamins/Minerals (Mvi With Minerals), 1 TAB PO DAILY Probiotic Product (Probiotic), 1 CAP DAILY Scheduled PRN Tramadol (Ultram), 50 MG PO Q4H PRN for Pain Problem List Medical Problems: (1) abd pain with hx of possibel crohn disease (2) Acute kidney injury (3) Gastrointestinal problem (4) H/O wisdom tooth extraction (5) Kidney cysts (6) Large bowel obstruction Surgical / Medical History Hx Cardiac Surgery: No Hx Abdominal Surgery: No Hx Cancer Surgery: Yes (COLON RESECTION 3 WEEKS AGO) Hx Thoracic Surgery: No Hx Orthopedic: No Hx Urinary Tract Surgery: No Past Medical/Surgical History: Cancer Family History Cancer Diabetes mellitus Hypertension Kidney disease Kidney stones Seizures Social History Smoking Status: Never Smoker Hx Tobacco Use In Past Year?: No Hx Alcohol Use - Type & Amnt: Yes (OCC) Hx Substance Use -Type & Amnt: No Review of Systems Constitutional: No chills, No diaphoresis, No fever, No malaise, No weakness, No weight gain, No weight loss, No sweats, No fatigue, No problem reported Skin: No change in color, No change in hair/nails, No dryness, No lesions, No lumps, No rash, No abnormal mole, No problem reported Eyes: No discharge, No blurred vision, No double vision, No eye pain, No tearing, No itching, No photophobia, No redness, No visual changes, No dryness, No irritation, No problem reported ENMT: No dental pain, No loss of hearing, No epistaxis, No ear discharge, No ear pain, No gum swelling, No mouth pain, No mouth swelling, No nasal congestion , No nasal pain, No rhinorrhea, No stridor, No tinnitus, No sore throat, No throat swelling, No problem reported Respiratory: No cough, No cyanosis, No FREEMAN, No hemoptysis, No orthopnea, No PND , No short of breath, No sputum production, No stridor, No wheezing, No dyspnea , No problem reported Cardiovascular: No chest pain, No chest tightness, No chest pressure, No palpitations, No syncope, No diaphoresis, No edema, No intermittent claudication , No orthopnea, No cyanosis, No mumur, No lightheadedness, No paroxysmal nocturnal dyspnea, No problem reported Gastrointestinal: + abdominal pain, No constipation, No diarrhea, No nausea, No vomiting, No anorexia, No appetite changes, No belching, No flatulence, No food intolerance, No hematemesis, No hemorrhoids, No hematochezia, No stool changes, No heartburn, No indigestion, No dysphagia, No rectal bleeding, No problem reported Genitourinary - Male: No impotence, No penile discharge, No penile itching, No rash, No testicular pain, No testicular swelling, No hematuria, No difficulty urinating, No problem reported Musculoskeletal: No back pain, No gout, No joint pain, No joint swelling, No muscle pain, No muscle stiffness, No muscle weakness, No neck pain, No problem reported Neurologic: No dizziness, No weakness, No headache, No lethargy, No numbness, No paresthesia, No pre-existing deficit, No seizures, No tics, No tingling, No tremors, No vertigo, No memory loss, No LOC, No problem reported Psychiatric: No anxiety, No alcohol abuse, No auditory hallucinations, No depression, No drug abuse, No homicidal ideation, No mood changes, No suicidal ideation, No visual hallucinations, No problem reported Physical Exam Constitutional: General Apperance: heathly-appearing, well-nourished, well-developed Level of Distress: NAD Ambulation: ambulating normally Psychiatric: Mental Status: active & alert, normal mood, normal affect Orientation: oriented except where noted, to time, to place, to person Memory: recent memory normal, remote memory normal Head: normocephalic ENMT: normal ENT inspection Neck: supple Lungs: Respiratory effort: no dyspnea Auscultation: breath sounds normal Cardiovascular: Heart Auscultation: RRR Peripheral Pulses: Pulses: full and equal, in all extremities except if noted Abdomen: Inspection & Palpation: soft, non-distended Musculoskeletal: normal, normal strength (5/5 throughout), normal tone Extremities: Upper Right: no cyanosis, no edema, no varicosities, no palpable cord, no clubbing, no ulcers, no mottling Upper Left: no cyanosis, no edema, no varicosities, no palpable cord, no clubbing, no ulcers, no mottling Lower Right: no cyanosis, no edema, no varicosities, no palpable cord, no clubbing, no ulcers, no mottling Lower Left: no cyanosis, no edema, no varicosities, no palpable cord, no clubbing, no ulcers, no mottling Neurologic: Cranial Nerves: grossly intact Sensation: grossly intact Assessment and Plan Imp: Colorectal cancer Plan: Patient admitted for infusaport insertion. I have discussed the risks options and benefits of the procedure with the patient. The patient understands the risks options and benefits and agrees to the procedure.
--- NOTE | 2017-08-12 08:08 | Procedure Note ---
Pre-Mod Sedation Assessment General Date of Moderate Sedation: Aug 12, 2017. Vital Signs: Vital Signs Past 12 Hours Date Time Temp Pulse Resp B/P (MAP) Pulse Ox O2 Delivery O2 Flow Rate FiO2 08/12/17 07:37 36.9 88 20 110/73 99 Room Air 08/12/17 06:59 36.9 88 20 110/73 (85) 99 Room Air Pre-Sedation Airway Assessment Oral Cavity: WNL Short Thick Neck: No Hx of Sleep Apnea: No Smoking Status: Never Smoker Mallampati Classification: Class I ASA Classification: Class I Notes The planned sedation has been discussed with the patient and consent obtained. I have identified the patient, determined the appropriateness of sedation and have assessed the patient immediately prior to the procedure. All medicine(s) and interventions are by my order.
[2017-08-12] MEDS ORDERED: MIDAZOLAM HCL 1 MG/ML 2ML VIAL IV ONE ×2 (08:41→09:01)
[2017-08-12] MEDS ORDERED: FENTANYL CITRATE INJ 50 MCG/1 ML 2 ML VIAL IV ONE (08:42)
[2017-08-12] MEDS ORDERED: LIDOCAINE HCL 1% 20 ML VIAL INJ ONE (08:43)
[2017-08-12] MEDS ORDERED: BUPIVACAINE/EPINEPHRINE 0.5% MPF 1:200,000 30 ML VIAL INJ ONE (08:43)
--- NOTE | 2017-08-12 09:19 | Procedure Note ---
Post-Moderate Sedation Plan General Date of Moderate Sedation Aug 12, 2017. Vital Signs: Vital Signs Past 12 Hours Date Time Temp Pulse Resp B/P (MAP) Pulse Ox O2 Delivery O2 Flow Rate FiO2 08/12/17 07:37 36.9 88 20 110/73 99 Room Air 08/12/17 06:59 36.9 88 20 110/73 (85) 99 Room Air Review - Discharge Plan Post Moderate Sedation Plan: On clinical assessment, the patient appears to have tolerated the conscious sedation without complications. Patient is recovering as anticipated. Patient will continue to be monitored by nursing and may be discharged when conscious sedation discharge criteria are met.
--- NOTE | 2017-08-12 09:19 | [facility] Operative Report ---
Operative Report Operative Date Aug 12, 2017. Pre-Operative Diagnosis colorectal cancer Post-Operative Diagnosis same Procedure(s) Performed Insertion Of Infusaport, Right Internal Jugular Approach, Ultrasound Localization Of Right Internal Jugular Vein, Fluoroscopy For Positioning, Moderate Concious Sedation [address] Garay Director Of Accreditation Surgeon(s) none Estimated Blood Loss 5 ml Findings tip in distal SVC Specimens none Anesthesia Local with sedation Complication(s) None Disposition Indications Patient's a 22-year-old white male with a colorectal carcinoma. He is need of an access for chemotherapy. Xohjeg-a-[id number] was recommended. I have discussed the risks options and benefits of the procedure with the patient. The patient understands the risks options and benefits and agrees to the procedure. Description of Procedure Patient was takent to the angio suite and placed in the supine position. The right side of the neck and chest wall were prepped and draped in a sterile manner. Local anesthesia was then administered to the appropriate areas of the neck and chest wall. A transverse incision was made below the clavicle on the chest wall and an inferior pocket was make. Bleeding was controlled using cautery. Ultrasound was then used to locate the right internal jugular vein. The vein compressed easily, had no filing defects, and was patent. The vein was then punctured under direct ultrasound imaging. A guidewire was then passed centrally under fluoroscopic imaging. The port catheter was then passed from the pocket incision to the puncture site in the neck using the tunneling device. The peel away sheath was inserted. The catheter was then beveled at the tip and inserted through the peel away sheath. The tip was then positioned in the distal SCV. It was then attached to the port and the catheter clamp applied. The port was then placed in the pocket and sutured to the chest fascia using prolene suture. The puncture site was then closed using a 4-0 Vicryl subcuticular suture. The chest incision was closed using a 3-0 Vicryl suture for the subcutaneous layer and a 4-0 Vicryl subcuticular stitch for the skin layer. Dermabond was used for a dressing on the puncture site and the incision. The port aspirated and flushed easily and was then flushed with heparinized saline. The patient left the angio suite in good condition and tolerated the procedure well. I attest to the content of the Intraoperative Record and any orders documented therein. Any exceptions are noted below.
[2017-08-12 09:25] VITALS: BP 120/66; PULSE 89; TEMP 37.1; O2SAT 100
--- NOTE | 2017-08-12 09:30 | Discharge Instructions ---
Discharge Instructions Date of Service Aug 12, 2017. Visit Reason for Visit: Colorectal Cancer Discharge Discharge Diagnosis / Problem: Colorectal cancer Discharge Goals Goal(s): Therapeutic intervention Activity Recommendations Activity Limitations: per Instructions/Follow-up section Call [phone] to schedule a follow up appointment if one not already scheduled. ACTIVITY RECOMMENDATIONS: See Above SPECIAL CARE INSTRUCTIONS: Call your doctor if: * Temperature above 101 degrees * Pain not relieved by pain medicine ordered * There is increased drainage or redness from any incision * You have any unanswered questions or concerns. Anesthesia . Post Anesthesia Instructions: If you have had General Anesthesia or IV Sedation: * Do not drive today. * Resume driving when surgeon permits. * Do not make important decisions or sign legal documents today. * Call surgeon for: 1. Temperature elevations greater than 101 degrees F. 2. Uncontrollable pain. 3. Excessive bleeding. 4. Persistent nausea and vomiting. 5. Medication intolerance (nausea, vomiting or rash). * For nausea and vomiting use only clear liquids such as: tea, soda, bouillon until nausea subsides, then gradually increase diet as tolerated. * If you have any concerns or questions, call your surgeon's office. If physician is unavailable and it is an emergency, call 911 or go to the nearest emergency room. . Diet Recommendations Recommended Home Diet: resume previous diet Procedures Procedures Performed: Insertion Of Infusaport, Right Internal Jugular Approach, Ultrasound Localization Of Right Internal Jugular Vein, Fluoroscopy For Positioning, Moderate Concious Sedation 0841 to 0914 Pending Studies Studies pending at discharge: no Medical Emergencies . Who to Call and When: Medical Emergencies: If at any time you feel your situation is an emergency, please call 911 immediately. . Non-Emergent Contact Non-Emergency issues call your: Surgeon . . "Provider Documentation" section prepared by Doyle Garay. .
[2017-08-12 09:40] VITALS: BP 113/64; PULSE 90; O2SAT 99
[2017-08-12 09:55] VITALS: BP 129/61; PULSE 87; TEMP 36.9; O2SAT 98
[2017-08-13] MEDS ORDERED: PROC1TAB5 PO (10:15)
[2017-08-13] MEDS ORDERED: ONDA8TAB6 PO (10:15)
== END 2017-08-12 10:10 | disposition home or self-care (01) ==
LOC: C.ACU 06:31
PROVIDERS: ATTEND Surgery Vascular Surgery
DX: C19 Malignant neoplasm of rectosigmoid junction (principal)

== ENCOUNTER → 2017-10-02 | Outpatient (CLI) | payer BC ==
[~2017-10-02] MED LIST changes: -CEFAZOLIN 1000MG/55 ML D5W IV SCH; -CEFAZOLIN 2000 MG/60 ML D5W IV SCH; -CHOL1000 PO; +ENOX40IN SQ; +ONDA8TAB6 PO; -PRD10 PO; +PROC1TAB5 PO; -SODIUM CHLORIDE 0.9% 1000ML 1,000 ML IV SCH; +TRAM-10 PO
[2017-10-02 16:41] LABS: MEAN CORPUSCULAR HGB CONC 31.5 g/dl (32-36)
[2017-10-02 16:50] LABS: ALT/SGPT 48 U/L (12-78); AST/SGOT 31 U/L (15-37); BLOOD UREA NITROGEN 17 mg/dl (7-18); BUN/CREATININE RATIO 14.8 (10-20); CALCIUM 9.4 mg/dl (8.5-10.1); CARBON DIOXIDE 30 mmol/L (21-32); CHLORIDE 107 mmol/L (98-107); CREATININE 1.14 mg/dl (0.60-1.40); GLUCOSE 80 mg/dl (70-99); POTASSIUM 3.8 mmol/L (3.5-5.1); SODIUM 139 mmol/L (136-145)
[2017-10-02 16:52] LABS: HEMATOCRIT 35.6 % (42-52); MEAN CELL VOLUME 81.7 fL (80-100); MEAN CORPUSCULAR HEMOGLOBIN 25.7 pg (25-34); RED BLOOD COUNT 4.36 M/uL (4.7-6.1)
[2017-10-02 16:53] LABS: ALB/GLOB RATIO 1.1 (0.9-2); ALKALINE PHOSPHATASE 48 U/L (45-117)
[2017-10-02 17:09] LABS: MEAN PLATELET VOLUME 11.2 fL (7.4-10.4); PLATELET COUNT 136 K/uL (130-400)
[2017-10-02 17:11] LABS: URINE APPEARANCE TURBID (CLEAR); URINE COLOR DK YELLOW; URINE NITRITE POS (NEG); URINE PH 5.5 (4.5-7.5); URINE PROTIEN/CREAT RATIO 0.1 (0-0.2); URINE SPECIFIC GRAVITY 1.032 (1.000-1.030); URINE TOTAL PROTEIN 45.6 mg/dl (0-11.9); UROBILINOGEN NEG (NEG)
[2017-10-02 17:19] LABS: MANUAL MICROSCOPIC REQUIRED? NO; REVIEW REQ? NO; URINE BILIRUBIN 1+ (NEG)
== END | disposition home or self-care (01) ==
LOC: C.LAB1850 15:12
PROVIDERS: ATTEND Internal Medicine Nephrology
DX: C18.9 Malignant neoplasm of colon, unspecified (principal)

== ENCOUNTER → 2017-12-04 | Outpatient (CLI) | payer OTHER ==
[2017-12-04 13:46] LABS: MEAN CORPUSCULAR HGB CONC 31.4 g/dl (32-36)
[2017-12-04 13:49] LABS: HEMATOCRIT 35.4 % (42-52); HEMOGLOBIN 11.1 g/dL (14.0-18.0); MEAN CELL VOLUME 85.9 fL (80-100); MEAN CORPUSCULAR HEMOGLOBIN 26.9 pg (25-34); RED CELL DISTRIBUTION WIDTH SD 69.2 fL (36.4-46.3); WHITE BLOOD COUNT 7.41 K/uL (4.8-10.8)
[2017-12-04 13:55] LABS: ALBUMIN 3.6 gm/dl (3.4-5.0); ALT/SGPT 42 U/L (12-78); AST/SGOT 24 U/L (15-37); BLOOD UREA NITROGEN 13 mg/dl (7-18); CALCIUM 8.9 mg/dl (8.5-10.1); CARBON DIOXIDE 27 mmol/L (21-32); CREATININE 1.05 mg/dl (0.60-1.40); GLUCOSE 79 mg/dl (70-99); POTASSIUM 3.8 mmol/L (3.5-5.1); SODIUM 140 mmol/L (136-145)
[2017-12-04 13:58] LABS: ALKALINE PHOSPHATASE 79 U/L (45-117)
[2017-12-04 16:25] LABS: MEAN PLATELET VOLUME 10.8 fL (7.4-10.4); PLATELET COUNT 128 K/uL (130-400)
== END | disposition home or self-care (01) ==
LOC: C.LAB 10:50
PROVIDERS: ATTEND Internal Medicine Hematology & Oncology
DX: C18.6 Malignant neoplasm of descending colon (principal); N28.1 Cyst of kidney, acquired; K50.90 Crohn's disease, unspecified, without complications

== ENCOUNTER → 2017-12-10 | Outpatient (CLI) | payer OTHER | END | disposition home or self-care (01) | LOC: C.LAB1850 09:42 | PROVIDERS: ATTEND Internal Medicine Nephrology | DX: N28.1 Cyst of kidney, acquired (principal); K50.90 Crohn's disease, unspecified, without complications; C18.9 Malignant neoplasm of colon, unspecified ==